=== PATIENT | female | born 1970 | race Caucasian/White ===

== ENCOUNTER 2018-04-14 15:51 | Emergency (ER) | payer OTHER, MEDICAID, SELFPAY ==
--- NOTE | 2018-04-14 15:52 | ED.UPPEXIN ---
HPI - Extremity Injury (Upper) <WANG Cade - Last Filed: 04/14/18 22:26> General Chief Complaint: Animal Bite Stated Complaint: Dog bite right hand Time Seen by Provider: 04/14/18 15:52 Source: patient Mode of arrival: ambulatory Limitations: no limitations History of Present Illness HPI narrative: 47-year-old healthy female that is a nonsmoker for complaint of a dog bite to her right hand. She states that her dog and another dog got into a fight earlier today and she tried to break it up and got bit by her dog accidentally. She states immunizations on the doctor up-to-date. She does not know when her last tetanus is. Injuries are limited to the right hand. Incident happened earlier this afternoon. She denies any other concerns or complaints at this time. MD complaint: injury to: right and hand Related Data Previous Rx's Medication Instructions Recorded sulfamethoxazole-trimethoprim 1 tab PO BID #14 tab 02/10/16 amoxicillin-pot clavulanate 1 tab PO BID #14 tab 04/14/18 Allergies Allergy/AdvReac Type Severity Reaction Status Date / Time No Known Drug Allergies Allergy Verified 04/14/18 16:01 Review of Systems <WANG Cade - Last Filed: 04/14/18 22:26> Constitutional Denies chills, Denies fever(s), Denies lethargy and Denies weakness Eyes Denies change in vision, Denies eye discharge, Denies irritation and Denies loss of vision ENT Ears, Nose, Mouth, and Throat: Denies change in voice, Denies neck pain and Denies sore throat Cardiovascular Denies chest pain, Denies irregular heart rhythm, Denies lightheadedness, Denies palpitations, Denies dyspnea, Denies dyspnea on exertion and Denies orthopnea Respiratory Denies cough, Denies dyspnea, Denies dyspnea on exertion and Denies wheezing Gastrointestinal Gastrointestinal: Denies abdominal pain, Denies change in bowel habits, Denies diarrhea, Denies nausea and Denies vomiting Genitourinary Denies hematuria, Denies flank pain, Denies urinary incontinence and Denies urinary urgency Musculoskeletal Denies neck pain Comments: Dog bite right hand Integumentary/Breasts Denies pruritus, Denies erythema, Denies rash and Denies wounds Neurologic Denies confusion, Denies loss of vision and Denies weakness Psychiatric Denies anxiety, Denies confusion, Denies depression, Denies homicidal ideation and Denies suicidal ideation Endocrine Denies palpitations Hematologic/Lymphatic Denies easy bruising Allergic/Immunologic Denies wheezing Exam <WANG Cade - Last Filed: 04/14/18 22:26> Initial Vital Signs Initial Vital Signs: Vital Signs Temperature 98.9 F 04/14/18 15:53 Pulse Rate 119 H 04/14/18 15:53 Respiratory Rate 20 04/14/18 15:53 Blood Pressure 104/70 04/14/18 15:53 Pulse Oximetry 96 04/14/18 15:53 Const General: cooperative and well developed Nutritional Appearance: well nourished Orientation: alert, awake, oriented x3 and not confused HENNM Mouth: oral mucosae normal and moist mucous membranes Eyes Conjunctivae: conjunctivae normal Sclera: sclerae normal Pupils: PERRL EOM: EOM intact bilaterally Resp Effort & Inspection: normal respiratory effort, able to speak in complete sentences, no respiratory distress and no use of accessory muscles Auscultation: clear to auscultation bilaterally, no rales, no rhonchi and no wheezes Cardio Rate: regular rate Rhythm: regular rhythm Heart Sounds: no click, no gallops, no murmurs and no rubs Pulses: normal peripheral pulses Skin General: no rashes or lesions noted, No jaundice and No petechiae Neuro General: alert, oriented x3, gait normal and no focal motor deficits Speech: speech normal Extrem Other: Multiple abrasions to the radial aspect of the right hand on the dorsum. Two puncture wounds is approximately half a cm each to the palm of the right hand on the radial aspect. Distal sensation is intact. Full range of motion. Distal cap refill less than 2 sec. <Tricia Agosto DO - Last Filed: 04/15/18 07:32> Initial Vital Signs Initial Vital Signs: Vital Signs Temperature 98.9 F 04/14/18 15:53 Pulse Rate 119 H 04/14/18 15:53 Respiratory Rate 20 04/14/18 15:53 Blood Pressure 104/70 04/14/18 15:53 Pulse Oximetry 96 04/14/18 15:53 Course <WANG Cade - Last Filed: 04/14/18 22:26> Orders Ordered: Discontinued Medications Amoxicillin/Clavulanate Potassium (Augmentin 875-125 Mg) 1 tab PO NOW ONE Stop: 04/14/18 17:18 Last Admin: 04/14/18 17:22 Dose: 1 tab Diphtheria/Tetanus/Acell Pertussis (Adacel) 0.5 ml IM .ONCE ONE Stop: 04/14/18 16:31 Last Admin: 04/14/18 16:39 Dose: 0.5 ml Ibuprofen (Advil) 400 mg PO NOW ONE Stop: 04/14/18 16:31 Last Admin: 04/14/18 16:39 Dose: 400 mg Vital Signs - 8 hr 04/14/18 15:53 04/14/18 17:11 04/14/18 17:26 Temperature 98.9 F Pulse Rate 119 H 98 H Respiratory Rate 20 20 Blood Pressure 104/70 93/71 Blood Pressure [Left Arm] 93/71 Pulse Oximetry 96 98 <Tricia Agosto DO - Last Filed: 04/15/18 07:32> Orders Ordered: Discontinued Medications Amoxicillin/Clavulanate Potassium (Augmentin 875-125 Mg) 1 tab PO NOW ONE Stop: 04/14/18 17:18 Last Admin: 04/14/18 17:22 Dose: 1 tab Diphtheria/Tetanus/Acell Pertussis (Adacel) 0.5 ml IM .ONCE ONE Stop: 04/14/18 16:31 Last Admin: 04/14/18 16:39 Dose: 0.5 ml Ibuprofen (Advil) 400 mg PO NOW ONE Stop: 04/14/18 16:31 Last Admin: 04/14/18 16:39 Dose: 400 mg Vital Signs - 8 hr 04/14/18 15:53 04/14/18 17:11 04/14/18 17:26 Temperature 98.9 F Pulse Rate 119 H 98 H Respiratory Rate 20 20 Blood Pressure 104/70 93/71 Blood Pressure [Left Arm] 93/71 Pulse Oximetry 96 98 MDM - Extremity Injury (Upper) <WANG Cade - Last Filed: 04/14/18 22:26> Imaging Data X-ray the right hand : Radiologist's impression: [address] [address] XRay Report Signed Patient: Danielle Roberts [facility]#: [id number] : 1970Acct:[id number] Age/Sex: 47 / FDate of Service: 04/14/18 Loc: ED Accession Number: [id number] Procedure: XR hand RT min 3V Ordering Provider: Jeff Wesley PROCEDURE: XR HAND RT MIN 3V INDICATIONS: 60# dog bite , right hand TECHNIQUE: 3 views of the hand(s) acquired. COMPARISON: None. FINDINGS: Bones: No fractures or dislocations. Carpal bones are normally aligned. No suspicious bony lesions. Soft tissues: No suspicious soft tissue calcifications. IMPRESSION: No acute right hand fracture or dislocation. No radiopaque foreign body is seen. Dictated by: Christopher Edgar M.D. on 04/14/2018 at 16:08 Approved by: Christopher Edgar M.D. on 04/14/2018 at 16:09 [facility] Narrative Medical decision making narrative: X-ray the right hand was obtained was negative for any foreign bodies or bony involvement. Puncture wounds to the palm of the right hand was debrided and dressed with Steri-Strips. Tetanus was updated in the emergency room. She is placed on Augmentin for prophylaxis antibiotics. Follow up with primary care provider in the next few days for re-evaluation. [id number] ibuprofen as needed for any discomfort. For any worsening symptoms or signs of infection return to the emergency room. Discharge Plan Departure Patient Disposition: Home Clinical Impression: Dog bite of right hand Discharge Date/Time: 04/14/18 17:27 Interventions: ED Discharge Assessment Last Done: 04/14/18 17:26 Instructions: DI for Dog Bite Activity Restrictions/Additional Instructions: X-ray the right hand was obtained was negative for any foreign bodies or bony involvement. Puncture wounds to the palm of the right hand was debrided and dressed with Steri-Strips. Keep dressing on clean and dry for 36 hr. Try to keep area of Steri-Strips and dry 2 long to stay on as long as possible. Tetanus was updated in the emergency room. You have been is placed on Augmentin for prophylaxis antibiotics use as directed. Follow up with primary care provider in the next few days for re-evaluation. [id number] ibuprofen as needed for any discomfort. For any worsening symptoms or signs of infection return to the emergency room. Prescriptions: New amoxicillin-pot clavulanate 875-125 mg tablet 1 tab PO BID Qty: 14 RF: 0 No Action sulfamethoxazole-trimethoprim 800 MG/160 MG tablet 1 tab PO BID Qty: 14 RF: 0 Referrals: [facility] [Provider Group] <Tricia Agosto DO - Last Filed: 04/15/18 07:32> Cosign ED Attending Grayson Attestation: I was immediately available in the department for consultation. Documentation has been reviewed. I agree with assessment and plan.
[2018-04-14 15:53] VITALS: BP 104/70; PULSE 119; RESP 20; TEMP 37.2; O2SAT 96; BMI 33.9
--- NOTE | 2018-04-14 16:00 | DI.RAD.S_ITS ---
PROCEDURE: XR HAND RT MIN 3V INDICATIONS: 60# dog bite , right hand TECHNIQUE: 3 views of the hand(s) acquired. COMPARISON: None. FINDINGS: Bones: No fractures or dislocations. Carpal bones are normally aligned. No suspicious bony lesions. Soft tissues: No suspicious soft tissue calcifications. IMPRESSION: No acute right hand fracture or dislocation. No radiopaque foreign body is seen. Dictated by: Christopher Edgar M.D. on 04/14/2018 at 16:08 Approved by: Christopher Edgar M.D. on 04/14/2018 at 16:09
[2018-04-14] MEDS: TET,DIPH,PERTUSS(ACELL),VAC/PF 0.5 ML SYRINGE IM (16:39)
[2018-04-14] MEDS: IBUPROFEN 400 MG TABLET PO (16:39)
[2018-04-14 17:11] VITALS: BP 93/71
[2018-04-14] MEDS: AMOXICILLIN/CLAV 875/125 MG 1 TAB PO (17:22)
--- NOTE | 2018-04-14 17:25 | PC.NURSE ---
dressed pts wound with bacitracin and gauze. Pt tolerated procedure.
[2018-04-14 17:26] VITALS: BP 93/71; PULSE 98; RESP 20; O2SAT 98
--- NOTE | 2018-04-14 20:27 | PC.NURSE ---
pt left prescription on bed in room 6, after discharge paperwork given. Tried calling home phone on pts chart, and contacts. no answer. prescription put in envelope held at [facility] [place] [place] desk in case pt called for prescription.
--- NOTE | 2018-04-15 18:08 | PC.NURSE ---
Rx called in to [facility] at pt request
== END 2018-04-14 17:27 | disposition home or self-care (01) ==
PROVIDERS: Emergency Provider Nurse Practitioner Family
DX: S61.451A Open bite of right hand, initial encounter (principal); W54.0XXA Bitten by dog, initial encounter
CPT/HCPCS: 73130; 90471; 99282; 99283; 90715

== ENCOUNTER 2018-05-25 20:19 | Emergency (ER) | payer OTHER, MEDICAID, SELFPAY ==
[2018-05-25 20:26] VITALS: BP 93/64; PULSE 104; RESP 20; TEMP 37.2; O2SAT 99
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
[2018-05-25 21:30] VITALS: BP 110/63; PULSE 103; RESP 15; O2SAT 96
--- NOTE | 2018-05-25 21:50 | ED.SYNCOPE ---
HPI - Syncope General Chief Complaint: Syncope Stated Complaint: not acting her self, passing out all the time Time Seen by Provider: 05/25/18 21:49 Source: patient Mode of arrival: ambulatory Limitations: no limitations History of Present Illness HPI narrative: The patient has been ill since yesterday. She has had diarrhea since yesterday. She has epigastric pain with nausea, but no illness. She has ongoing epigastric pain now, but no radiation to the back. She has had no blood with the diarrhea. She has no history of GI bleed. She currently feels weak, and fatigued. She has not had associated fever or chills. She does have mid back pain on the left, but no associated dysuria. She does have a history of UTI. She has not been around others with illness. She has no chronic illness, she is not on medications. Related Data Previous Rx's Medication Instructions Recorded amoxicillin-pot clavulanate 1 tab PO BID #14 tab 04/14/18 Allergies Allergy/AdvReac Type Severity Reaction Status Date / Time No Known Drug Allergies Allergy Verified 05/25/18 20:34 Review of Systems Review of Systems ROS Unobtainable: All systems reviewed & are unremarkable except as noted in HPI and below Constitutional Reports chills, Denies fever(s), Denies headache(s), Reports lethargy, Reports poor appetite and Reports weakness Eyes Denies change in vision, Denies eye discharge, Denies irritation and Denies loss of vision ENT Ears, Nose, Mouth, and Throat: Denies change in voice, Denies headache(s), Denies neck pain and Denies sore throat Cardiovascular Denies chest pain, Denies irregular heart rhythm, Denies lightheadedness, Denies palpitations, Denies dyspnea, Denies dyspnea on exertion and Denies orthopnea Respiratory Denies cough, Denies dyspnea, Denies dyspnea on exertion and Denies wheezing Gastrointestinal Gastrointestinal: Reports abdominal pain (Epigastric), Denies change in bowel habits, Reports diarrhea, Reports nausea and Denies vomiting Genitourinary Denies dysuria Musculoskeletal Reports back pain and Denies neck pain Integumentary/Breasts Denies pruritus, Denies erythema, Denies rash and Denies wounds Neurologic Denies headache(s), Denies loss of vision and Reports weakness Endocrine Denies palpitations Allergic/Immunologic Denies wheezing [facility] Medical History No active medical problems (Acute) Surgical History No history of previous surgery (Acute) Social History Smoking Status: Never smoker alcohol intake: never substance use type: does not use Exam Initial Vital Signs Initial Vital Signs: Vital Signs Temperature 99.0 F 05/25/18 20:26 Pulse Rate 104 H 05/25/18 20:26 Respiratory Rate 20 05/25/18 20:26 Blood Pressure 93/64 05/25/18 20:26 Pulse Oximetry 99 05/25/18 20:26 Const General: cooperative, well developed, ill appearing, lethargic and No well hydrated Nutritional Appearance: well nourished Orientation: alert, awake, oriented x3 and not confused HENPR Head: normocephalic and atraumatic Nose: external nose normal Face and sinus: sinuses nontender and face symmetric Mouth: other (Oral mucosa appears dry) Throat: tonsils normal and uvula midline Eyes Visual Covarrubias: normal visual covarrubias by confrontation Conjunctivae: conjunctivae normal Pupils: PERRL EOM: EOM intact bilaterally Neck Neck: supple and No tender Chest Chest: normal inspection of the chest Resp Effort & Inspection: normal respiratory effort, able to speak in complete sentences, no respiratory distress and no use of accessory muscles Auscultation: clear to auscultation bilaterally, no rales, no rhonchi and no wheezes Cardio Rate: regular rate Rhythm: regular rhythm Heart Sounds: no click, no gallops, no murmurs and no rubs Pulses: normal peripheral pulses GI Inspection: non-distended Palpation: soft, no hepatosplenomegaly, No guarding and No tender (In the epigastric area without guarding or rebound.) Auscultation: normal bowel sounds Back/Spine/Pelvis Back: No CVA tenderness Skin General: no rashes or lesions noted and No jaundice Neuro General: alert, oriented x3, gait normal and no focal motor deficits Speech: speech normal Motor: muscle tone normal throughout Extrem General: full ROM, no clubbing, cyanosis or edema, no pedal edema and no calf tenderness Psych Appearance: well kempt Mental Status: mental status grossly normal Attitude: cooperative Thought Content: normal and suicidality Judgment: judgment good Other: Seems drowsy Course Course Narrative: The patient was evaluated. History was taken. Patient seemed withdrawn, but was compliant with the exam, history and physical. IV fluids and labs were ordered. After I left the room, patient declared that she is leaving [facility] to the nurses. No additional evaluation occurred. Orders Ordered: ED Orders 05/25/18 22:07 Complete Blood Count AUTO DIFF Stat Comprehensive Metabolic Panel Stat Lipase Stat EKG-12 Lead Stat Discontinued Medications Sodium Chloride (Normal Saline 0.9%) 500 mls @ 1,000 mls/hr IV BOLUS ONE Stop: 05/25/18 22:36 Ketorolac Tromethamine (Toradol) 30 mg IV NOW ONE Stop: 05/25/18 22:08 Ondansetron HCl (Zofran) 4 mg IV NOW ONE Stop: 05/25/18 22:08 Vital Signs - 8 hr 05/25/18 20:26 05/25/18 21:30 05/25/18 22:00 Temperature 99.0 F Pulse Rate 104 H 103 H 91 H Respiratory Rate 20 15 16 Blood Pressure 93/64 Blood Pressure [Right Arm] 110/63 114/69 Pulse Oximetry 99 96 98 05/25/18 22:22 Temperature 99.8 F H Pulse Rate Respiratory Rate Blood Pressure Blood Pressure [Right Arm] Pulse Oximetry Discharge Plan Departure Patient Disposition: Left Against Medical Advice Clinical Impression: Left against medical advice Discharge Date/Time: 05/25/18 22:43 Interventions: ED Discharge Assessment Last Done: 05/25/18 22:45 Prescriptions: No Action amoxicillin-pot clavulanate 875-125 mg tablet 1 tab PO BID Qty: 14 RF: 0 Stand Alone Forms: Against Medical Advice
[2018-05-25 22:00] VITALS: BP 114/69; PULSE 91; RESP 16; O2SAT 98
--- NOTE | 2018-05-25 22:06 | PC.NURSE ---
friend reports he tried to get into pt house last night but the door was locked and nobody answered. He slept in his truck and tried again in the morning. She unlocked the door in the morning and let him in. He states she was laying on the floor the whole night. Pt appears to be selectivey answering questions and choosing not to answer others. At one point she yelled out Shaheen and said she wanted brian to leave and Vinnie to come. Pt is now allowing Brian to use her phone and is denying wanting brian to leave. Provider at [facility] assessing. Francheska recieved.
[2018-05-25 22:22] VITALS: TEMP 37.7
--- NOTE | 2018-05-25 22:44 | PC.NURSE ---
Pt requesting to sign out AMA. Dr. Gan aware. Pt signed AMA form. Pt left ambulatory, steady gait noted. Pt in no apparent distress at time of D/C, AOx4.
== END 2018-05-25 22:43 | disposition left against medical advice (07) ==
PROVIDERS: Emergency Provider Emergency Medicine
DX: R55 Syncope and collapse (principal); Z53.20 Procedure and treatment not carried out because of patient's decision for unspecified reasons
CPT/HCPCS: 93005; 93010; 99283

== ENCOUNTER 2018-07-03 12:15 | Emergency (ER) | payer OTHER, MEDICAID, SELFPAY ==
[2018-07-03 12:28] VITALS: BP 123/81; PULSE 98; RESP 18; TEMP 37.7; O2SAT 95
--- NOTE | 2018-07-03 12:35 | ED.URI ---
HPI - URI/Sore Throat <Evelyn Devine PA-C - Last Filed: 07/03/18 19:42> General Chief Complaint: Upper Respiratory Symptoms Stated Complaint: Fever, cough, headache Time Seen by Provider: 07/03/18 12:23 Source: patient Mode of arrival: ambulatory Limitations: no limitations History of Present Illness HPI Narrative: This 47-year-old female comes to ED secondary to body aches that started 3 days ago, then cough, runny nose and fever ( she states that she did not take any temperatures at home but her head felt warm ). She denies any chest pain, wheeze, or dyspnea. She denies any known exposures or travel recently. She denies any new rashes, no vomiting diarrhea or other complaints on systems review aside from fatigue. She is not sure whether she had a flu vaccine this season Related Data Home Medications Medication Instructions Recorded Confirmed No Known Home Medications 07/03/18 07/03/18 Allergies Allergy/AdvReac Type Severity Reaction Status Date / Time No Known Drug Allergies Allergy Verified 07/03/18 12:31 Review of Systems <Evelyn Devine PA-C - Last Filed: 07/03/18 19:42> Review of Systems ROS Unobtainable: All systems reviewed & are unremarkable except as noted in HPI and below PFSH <Evelyn Devine PA-C - Last Filed: 07/03/18 19:42> Medical History Osteoarthritis of lumbar spine (Chronic) Surgical History No history of previous surgery (Chronic) Social History Smoking Status: Never smoker alcohol intake: never substance use type: does not use Social History Smoking Status: Never smoker alcohol intake: never substance use type: does not use Exam <Evelyn Devine PA-C - Last Filed: 07/03/18 19:42> Narrative Exam Narrative: GENERAL APPEARANCE: Patient sleeping comfortably, in no distress. HEAD: No sinus TTP. EYES: PERRL, EOMI. EARS: Normal auditory canals, TMS intact with normal light reflexes. ORAL CAVITY: Normal oropharynx. THROAT: Clear. NECK/THYROID: Neck supple, full range of motion shotty anterior cervical lymphadenopathy. LUNGS: Clear to auscultation bilaterally, no cough on exam. HEART: RRR without murmur, nl S1, S2, no S3 or S4. DERMATOLOGIC: No exanthem Initial Vital Signs Initial Vital Signs: Vital Signs Temperature 99.8 F H 07/03/18 12:28 Pulse Rate 98 H 07/03/18 12:28 Respiratory Rate 18 07/03/18 12:28 Blood Pressure 123/81 07/03/18 12:28 Pulse Oximetry 95 07/03/18 12:28 <Will Freire DO - Last Filed: 07/03/18 19:47> Initial Vital Signs Initial Vital Signs: Vital Signs Temperature 99.8 F H 07/03/18 12:28 Pulse Rate 98 H 07/03/18 12:28 Respiratory Rate 18 07/03/18 12:28 Blood Pressure 123/81 07/03/18 12:28 Pulse Oximetry 95 07/03/18 12:28 Course <Evelyn Devine PA-C - Last Filed: 07/03/18 19:42> Orders Ordered: ED Orders 07/03/18 12:37 Influenza A and B by PCR Rapid Stat Discontinued Medications Ibuprofen (Advil) 800 mg PO NOW ONE Stop: 07/03/18 12:32 Last Admin: 07/03/18 12:39 Dose: 800 mg Vital Signs - 8 hr 07/03/18 12:28 07/03/18 12:39 07/03/18 13:57 Temperature 99.8 F H 99.8 F H 98.0 F Pulse Rate 98 H 84 Respiratory Rate 18 17 Blood Pressure 123/81 Blood Pressure [Left Arm] 116/61 Pulse Oximetry 95 96 <Will Freire DO - Last Filed: 07/03/18 19:47> Orders Ordered: ED Orders 07/03/18 12:37 Influenza A and B by PCR Rapid Stat Discontinued Medications Ibuprofen (Advil) 800 mg PO NOW ONE Stop: 07/03/18 12:32 Last Admin: 07/03/18 12:39 Dose: 800 mg Vital Signs - 8 hr 07/03/18 12:28 07/03/18 12:39 07/03/18 13:57 Temperature 99.8 F H 99.8 F H 98.0 F Pulse Rate 98 H 84 Respiratory Rate 18 17 Blood Pressure 123/81 Blood Pressure [Left Arm] 116/61 Pulse Oximetry 95 96 MDM - URI/Sore Throat <Evelyn Devine PA-C - Last Filed: 07/03/18 19:42> Lab Data Lab Results 07/03/18 Range/Units 12:37 Influenza A & B (PCR) Negative (Negative) <Will Freire DO - Last Filed: 07/03/18 19:47> Lab Data Lab Results 07/03/18 Range/Units 12:37 Influenza A & B (PCR) Negative (Negative) Discharge Plan Departure Patient Disposition: Home Clinical Impression: Upper respiratory infection Qualifiers: URI type: unspecified viral URI Qualified Code(s): J06.9 - Acute upper respiratory infection, unspecified Discharge Date/Time: 07/03/18 14:00 Interventions: ED Discharge Assessment Last Done: 07/03/18 14:00 Instructions: DI for Viral Upper Respiratory Infection -- Adult Activity Restrictions/Additional Instructions: based on your exam findings and negative test for the flu today, I suspect that you have another viral infection that is similar to the flu. Please rest at home. Avoid exposure to others while you still have cough. Take 600-800 mg of ibuprofen every 8 hr to help with aches and fever, and you can add Tylenol every 4-6 hours in addition as needed. Please return to the closest emergency room if you have acutely worsening symptoms such as breathing difficulty, high fever not responding to medicines etc. Otherwise this is likely to run its course over the next week or so. Prescriptions: No Action No Known Home Medications RF: 0 <Will Freire DO - Last Filed: 07/03/18 19:47> Cosign ED Attending Jaironature Attestation: I was available for consultation during this patient's emergency department encounter
[2018-07-03 12:39] VITALS: TEMP 37.7
[2018-07-03] MEDS: IBUPROFEN 400 MG TABLET 800 MG PO (12:39)
[2018-07-03 13:37] LABS: Influenza A and B by PCR Rapid Negative (Negative)
[2018-07-03 13:57] VITALS: BP 116/61; PULSE 84; RESP 17; TEMP 36.7; O2SAT 96
== END 2018-07-03 14:00 | disposition home or self-care (01) ==
PROVIDERS: Emergency Provider Internal Medicine
DX: J06.9 Acute upper respiratory infection, unspecified (principal)
CPT/HCPCS: 87400; 99282; 99283

== ENCOUNTER 2018-09-20 10:37 | Emergency (ER) | payer OTHER, MEDICAID, SELFPAY ==
[2018-09-20 10:40] VITALS: BP 142/78; PULSE 84; RESP 14; TEMP 36.6; O2SAT 99
--- NOTE | 2018-09-20 11:38 | ED.GIBLEED ---
HPI - GI Bleed General Chief complaint: GI Bleed Stated complaint: Pooping pure blood Time Seen by Provider: 09/20/18 11:37 Source: patient Mode of arrival: ambulatory Limitations: no limitations History of Present Illness HPI Narrative: 47-year-old female comes to the emergency department with complaint of rectal bleeding. Patient states that it started last night. She went to the movies, she went to the bathroom she was straining and then she started to have diarrhea. She did vomit twice last night but none today. She has not had any fevers, no nausea currently. She does not have any abdominal pain currently. She states she did have a little bit sort of rectally and lower abdomen. Patient states that there was blood on the toilet paper as well as around the stool she did notice if it is mixed within or not. There was a little bit in the toilet itself. She did not note if there were any clots. She has not had any passing out or lightheadedness. No urinary sense of no urgency dysuria or frequency. She is not aware of any hemorrhoids. She denies any other medical issues. Denies any prior surgeries. She denies any tobacco, alcohol or illicit. Related Data Previous Rx's Medication Instructions Recorded ciprofloxacin HCl 500 mg PO BID #20 tab 09/20/18 metronidazole [Flagyl] 500 mg PO TID #30 tab 09/20/18 Allergies Allergy/AdvReac Type Severity Reaction Status Date / Time No Known Drug Allergies Allergy Verified 07/03/18 12:31 Review of Systems Review of Systems ROS Unobtainable: All systems reviewed & are unremarkable except as noted in HPI and below Constitutional Denies chills, Denies fever(s), Denies lethargy and Denies weakness Cardiovascular Denies chest pain, Denies lightheadedness, Denies palpitations and Denies dyspnea Respiratory Denies dyspnea Gastrointestinal Gastrointestinal: Reports abdominal pain, Denies melena, Reports hematochezia, Reports change in bowel habits, Reports tenesmus, Denies constipation, Reports diarrhea, Denies nausea and Reports vomiting (2x last night. ) Genitourinary Denies hematuria, Denies urinary frequency, Denies dysuria, Denies flank pain, Denies urinary urgency and Denies vaginal discharge Neurologic Denies weakness Endocrine Denies palpitations [facility] Medical History Osteoarthritis of lumbar spine (Chronic) Surgical History No history of previous surgery (Chronic) Social History Smoking Status: Never smoker alcohol intake: never substance use type: does not use Social History Smoking Status: Never smoker alcohol intake: never substance use type: does not use Exam Narrative Exam Narrative: GENERAL: Alert and oriented x three, well-nourished female that appears older than her stated age in no acute distress. HEENT: Head normocephalic, atraumatic, EOMI, pupils reactive, face symmetric, moist mucous membranes NECK: Supple, full range of motion CARDIOVASCULAR: Regular rate and rhythm without murmurs, rubs or gallops. RESPIRATORY: Breath sounds equal bilaterally, no wheezes rales or rhonchi. ABDOMEN: Soft, nontender. Normoactive bowel sounds all 4 quadrants. No guarding or rebound, rigidity, no mass. On rectal exam no palpable hemorrhoids noted externally or internally, nontender. Patient does not have any bright red blood but does have a little bit of color change on Hemoccult. Very scant. : No CVA tenderness EXTREMITIES: Normal range of motion, no clubbing or edema. Neurovascularly intact NEUROLOGICAL: Cranial nerves II through XII grossly intact. Moving all extremities SKIN: Warm, dry, no petechiae, no rashes or lesions. Initial Vital Signs Initial Vital Signs: Vital Signs Temperature 97.8 F 09/20/18 10:40 Pulse Rate 84 09/20/18 10:40 Respiratory Rate 14 09/20/18 10:40 Blood Pressure 142/78 H 09/20/18 10:40 Pulse Oximetry 99 09/20/18 10:40 Course Orders Ordered: ED Orders 09/20/18 12:22 Basic Metabolic Panel Stat Complete Blood Count AUTO DIFF Stat Partial Thromboplastin Time Stat Prothrombin Time INR Stat 09/20/18 14:13 Urine Culture Stat Urine Microscopic Stat Vital Signs - 8 hr 09/20/18 13:09 09/20/18 13:30 Pulse Rate 69 Respiratory Rate 15 Blood Pressure [Left Arm] 119/68 104/51 L Pulse Oximetry 100 MDM - GI Bleed Lab Data Result diagrams: 09/20/18 12:22 09/20/18 12:22 Lab Results 09/20/18 09/20/18 09/20/18 Range/Units 12:22 12:22 12:22 WBC 13.4 H (4.5-11.0) X10^3/uL RBC 4.98 (4.0-5.2) X10^6/uL Hgb 10.7 L (12.0-16.0) g/dL Hct 35.1 L (36-46) % MCV 70.4 L (80-100) fL MCH 21.5 L (26-34) PG MCHC 30.5 (30-36) % RDW 17.6 H (11.6-14.8) % Plt Count 353 (150-400) X10^3/uL Neut % (Auto) 71.3 (50-75) % Lymph % (Auto) 15.5 L (25-40) % [place] % (Auto) 11.3 (3-14) % Eos % (Auto) 1.1 L (2-4) % Baso % (Auto) 0.8 (0-2) % Neut # (Auto) 9500 H (4624-9971) /uL Lymph # (Auto) 2100 (1230-5789) /uL [place] # (Auto) 1500 H (0-900) /uL Eos # (Auto) 100 (0-450) /uL Baso # (Auto) 100 (0-100) /uL PT 11.0 (10.1-12.7) SECONDS INR 1.0 (0.9-1.3) APTT 29 (26.4-36.2) SECONDS Sodium 138 (137-145) mmol/L Potassium 3.5 (3.4-5.1) mmol/L Chloride 103 (98-107) mmol/L Carbon Dioxide 27 (22-32) mmol/L BUN 11 (7-17) mg/dL Creatinine 0.60 (0.52-1.04) mg/dL Estimated GFR > 60.0 (>60) mL/min BUN/Creatinine Ratio 18.3 (6-22) Glucose 99 (70-100) mg/dL Calcium 9.0 (8.4-10.2) mg/dL Urine RBC (0-5/HPF) Urine WBC (0-5/HPF) Ur Squamous Epith Cells (0-5/HPF) Amorphous Sediment Urine Bacteria (None) Urine Mucus (Negative) Ur Culture Indicated? 09/20/18 Range/Units 14:13 WBC (4.5-11.0) X10^3/uL RBC (4.0-5.2) X10^6/uL Hgb (12.0-16.0) g/dL Hct (36-46) % MCV (80-100) fL MCH (26-34) PG MCHC (30-36) % RDW (11.6-14.8) % Plt Count (150-400) X10^3/uL Neut % (Auto) (50-75) % Lymph % (Auto) (25-40) % [place] % (Auto) (3-14) % Eos % (Auto) (2-4) % Baso % (Auto) (0-2) % Neut # (Auto) (3695-5016) /uL Lymph # (Auto) (0502-4909) /uL [place] # (Auto) (0-900) /uL Eos # (Auto) (0-450) /uL Baso # (Auto) (0-100) /uL PT (10.1-12.7) SECONDS INR (0.9-1.3) APTT (26.4-36.2) SECONDS Sodium (137-145) mmol/L Potassium (3.4-5.1) mmol/L Chloride (98-107) mmol/L Carbon Dioxide (22-32) mmol/L BUN (7-17) mg/dL Creatinine (0.52-1.04) mg/dL Estimated GFR (>60) mL/min BUN/Creatinine Ratio (6-22) Glucose (70-100) mg/dL Calcium (8.4-10.2) mg/dL Urine RBC 0-1/hpf (0-5/HPF) Urine WBC 5-10/hpf H (0-5/HPF) Ur Squamous Epith Cells 1-5 /hpf (0-5/HPF) Amorphous Sediment 1+ Urine Bacteria Many (>30) H (None) Urine Mucus 1+ H (Negative) Ur Culture Indicated? Specimen cultured Urine Dip Bedside Urine Glucose Negative Bedside Urine Bilirubin - Negative Bedside Urine Ketone - Negative Urine Specific [place] 1.030 Bedside Urine Occult Blood +/- Bedside Urine pH 6.0 Bedside Urine Protein +/- 15 Bedside Urine Urobilinogen - Negative Bedside Urine Nitrite + Positive Bedside Urine Leukocytes - Negative Esterase MDM Narrative Medical decision making narrative: Patient required multiple lab draw attempts, patient eventually was able to blood from his foot. Patient's vitals have been stable, hemoglobin is 10.7 with prior in the range of 12. White count is 13. She has a microcytic anemia, last hemoglobin was from 2016. the patient's coags are normal with a normal BMP. On repeat exam patient's abdominal exam is normal and benign. Discussed with patient she is a very hard stick we could attempt to get an IV and get a contrasted CT but I also suspect she may have a little diverticulitis or colitis causing her bleeding and discomfort. Patient and I discussed doing oral antibiotics and re-evaluating. She does need to have colonoscopy at some point to see why she has change in her hemoglobin and positive occult stool. We also discussed signs and symptoms to watch for and reasons to return emergently. Her vital signs are normal today and she has not had any more bowel movements or bloody stools in the department. Patient is comfortable with this plan she is aware that we do not have an exact cause of her bleeding but that we will treat this and see how she responds. Discharge Plan Departure Patient Disposition: Home Clinical Impression: Bright red rectal bleeding, Diverticulitis, UTI (urinary tract infection) Discharge Date/Time: 09/20/18 14:16 Interventions: ED Discharge Assessment Last Done: 09/20/18 14:16 Instructions: DI for Diverticulitis, DI for Rectal Bleeding Activity Restrictions/Additional Instructions: Follow-up with General surgery in the next 1-2 weeks for recheck for colonoscopy. You may also call [phone] for the health human resources benefits manager and they will help you find a primary care physician to establish with. Take antibiotics until they are completely gone. The Flagyl will make you throw up if you drink alcohol while taking this medication. You may take ibuprofen and/or Tylenol as needed for pain. Return to the emergency department for fevers greater than 100.4 F, worsening abdominal pain, increasing rectal bleeding, large clots, lightheadedness, passing out, chest pain or shortness of breath, black stools or other new or concerning symptoms. Prescriptions: New metronidazole [Flagyl] 500 mg tablet 500 mg PO TID Qty: 30 RF: 0 ciprofloxacin HCl 500 mg tablet 500 mg PO BID Qty: 20 RF: 0
--- NOTE | 2018-09-20 12:14 | ED_ITS ---
HPI - GI Bleed General Chief complaint: GI Bleed Stated complaint: Pooping pure blood Time Seen by Provider: 09/20/18 11:37 Source: patient Mode of arrival: ambulatory Limitations: no limitations History of Present Illness HPI Narrative: 47-year-old female comes to the emergency department with complaint of rectal bleeding. Patient states that it started last night. She went to the movies, she went to the bathroom she was straining and then she started to have diarrhea. She did vomit twice last night but none today. She has not had any fevers, no nausea currently. She does not have any abdominal pain currently. She states she did have a little bit sort of rectally and lower abdomen. Patient states that there was blood on the toilet paper as well as around the stool she did notice if it is mixed within or not. There was a little bit in the toilet itself. She did not note if there were any clots. She has not had any passing out or lightheadedness. No urinary sense of no urgency dysuria or frequency. She is not aware of any hemorrhoids. She denies any other medical issues. Denies any prior surgeries. She denies any tobacco, alcohol or illicit. Related Data Previous Rx's Medication Instructions Recorded ciprofloxacin HCl 500 mg PO BID #20 tab 09/20/18 metronidazole [Flagyl] 500 mg PO TID #30 tab 09/20/18 Allergies Allergy/AdvReac Type Severity Reaction Status Date / Time No Known Drug Allergies Allergy Verified 07/03/18 12:31 Review of Systems Review of Systems ROS Unobtainable: All systems reviewed & are unremarkable except as noted in HPI and below Constitutional Denies chills, Denies fever(s), Denies lethargy and Denies weakness Cardiovascular Denies chest pain, Denies lightheadedness, Denies palpitations and Denies dyspnea Respiratory Denies dyspnea Gastrointestinal Gastrointestinal: Reports abdominal pain, Denies melena, Reports hematochezia, Reports change in bowel habits, Reports tenesmus, Denies constipation, Reports diarrhea, Denies nausea and Reports vomiting (2x last night. ) Genitourinary Denies hematuria, Denies urinary frequency, Denies dysuria, Denies flank pain, Denies urinary urgency and Denies vaginal discharge Neurologic Denies weakness Endocrine Denies palpitations [facility] Medical History Osteoarthritis of lumbar spine (Chronic) Surgical History No history of previous surgery (Chronic) Social History Smoking Status: Never smoker alcohol intake: never substance use type: does not use Social History Smoking Status: Never smoker alcohol intake: never substance use type: does not use Exam Narrative Exam Narrative: GENERAL: Alert and oriented x three, well-nourished female that appears older than her stated age in no acute distress. HEENT: Head normocephalic, atraumatic, EOMI, pupils reactive, face symmetric, moist mucous membranes NECK: Supple, full range of motion CARDIOVASCULAR: Regular rate and rhythm without murmurs, rubs or gallops. RESPIRATORY: Breath sounds equal bilaterally, no wheezes rales or rhonchi. ABDOMEN: Soft, nontender. Normoactive bowel sounds all 4 quadrants. No guarding or rebound, rigidity, no mass. On rectal exam no palpable hemorrhoids noted externally or internally, nontender. Patient does not have any bright red blood but does have a little bit of color change on Hemoccult. Very scant. : No CVA tenderness EXTREMITIES: Normal range of motion, no clubbing or edema. Neurovascularly intact NEUROLOGICAL: Cranial nerves II through XII grossly intact. Moving all extremities SKIN: Warm, dry, no petechiae, no rashes or lesions. Initial Vital Signs Initial Vital Signs: Vital Signs Temperature 97.8 F 09/20/18 10:40 Pulse Rate 84 09/20/18 10:40 Respiratory Rate 14 09/20/18 10:40 Blood Pressure 142/78 H 09/20/18 10:40 Pulse Oximetry 99 09/20/18 10:40 Course Orders Ordered: ED Orders 09/20/18 12:22 Basic Metabolic Panel Stat Complete Blood Count AUTO DIFF Stat Partial Thromboplastin Time Stat Prothrombin Time INR Stat 09/20/18 14:13 Urine Culture Stat Urine Microscopic Stat Vital Signs - 8 hr 09/20/18 13:09 09/20/18 13:30 Pulse Rate 69 Respiratory Rate 15 Blood Pressure [Left Arm] 119/68 104/51 L Pulse Oximetry 100 MDM - GI Bleed Lab Data Result diagrams: 09/20/18 12:22 09/20/18 12:22 Lab Results 09/20/18 09/20/18 09/20/18 Range/Units 12:22 12:22 12:22 WBC 13.4 H (4.5-11.0) X10^3/uL RBC 4.98 (4.0-5.2) X10^6/uL Hgb 10.7 L (12.0-16.0) g/dL Hct 35.1 L (36-46) % MCV 70.4 L (80-100) fL MCH 21.5 L (26-34) PG MCHC 30.5 (30-36) % RDW 17.6 H (11.6-14.8) % Plt Count 353 (150-400) X10^3/uL Neut % (Auto) 71.3 (50-75) % Lymph % (Auto) 15.5 L (25-40) % [place] % (Auto) 11.3 (3-14) % Eos % (Auto) 1.1 L (2-4) % Baso % (Auto) 0.8 (0-2) % Neut # (Auto) 9500 H (6413-2198) /uL Lymph # (Auto) 2100 (0850-6554) /uL [place] # (Auto) 1500 H (0-900) /uL Eos # (Auto) 100 (0-450) /uL Baso # (Auto) 100 (0-100) /uL PT 11.0 (10.1-12.7) SECONDS INR 1.0 (0.9-1.3) APTT 29 (26.4-36.2) SECONDS Sodium 138 (137-145) mmol/L Potassium 3.5 (3.4-5.1) mmol/L Chloride 103 (98-107) mmol/L Carbon Dioxide 27 (22-32) mmol/L BUN 11 (7-17) mg/dL Creatinine 0.60 (0.52-1.04) mg/dL Estimated GFR > 60.0 (>60) mL/min BUN/Creatinine Ratio 18.3 (6-22) Glucose 99 (70-100) mg/dL Calcium 9.0 (8.4-10.2) mg/dL Urine RBC (0-5/HPF) Urine WBC (0-5/HPF) Ur Squamous Epith Cells (0-5/HPF) Amorphous Sediment Urine Bacteria (None) Urine Mucus (Negative) Ur Culture Indicated? 09/20/18 Range/Units 14:13 WBC (4.5-11.0) X10^3/uL RBC (4.0-5.2) X10^6/uL Hgb (12.0-16.0) g/dL Hct (36-46) % MCV (80-100) fL MCH (26-34) PG MCHC (30-36) % RDW (11.6-14.8) % Plt Count (150-400) X10^3/uL Neut % (Auto) (50-75) % Lymph % (Auto) (25-40) % [place] % (Auto) (3-14) % Eos % (Auto) (2-4) % Baso % (Auto) (0-2) % Neut # (Auto) (1609-4555) /uL Lymph # (Auto) (3748-3207) /uL [place] # (Auto) (0-900) /uL Eos # (Auto) (0-450) /uL Baso # (Auto) (0-100) /uL PT (10.1-12.7) SECONDS INR (0.9-1.3) APTT (26.4-36.2) SECONDS Sodium (137-145) mmol/L Potassium (3.4-5.1) mmol/L Chloride (98-107) mmol/L Carbon Dioxide (22-32) mmol/L BUN (7-17) mg/dL Creatinine (0.52-1.04) mg/dL Estimated GFR (>60) mL/min BUN/Creatinine Ratio (6-22) Glucose (70-100) mg/dL Calcium (8.4-10.2) mg/dL Urine RBC 0-1/hpf (0-5/HPF) Urine WBC 5-10/hpf H (0-5/HPF) Ur Squamous Epith Cells 1-5 /hpf (0-5/HPF) Amorphous Sediment 1+ Urine Bacteria Many (>30) H (None) Urine Mucus 1+ H (Negative) Ur Culture Indicated? Specimen cultured Urine Dip Bedside Urine Glucose Negative Bedside Urine Bilirubin - Negative Bedside Urine Ketone - Negative Urine Specific [place] 1.030 Bedside Urine Occult Blood +/- Bedside Urine pH 6.0 Bedside Urine Protein +/- 15 Bedside Urine Urobilinogen - Negative Bedside Urine Nitrite + Positive Bedside Urine Leukocytes - Negative Esterase MDM Narrative Medical decision making narrative: Patient required multiple lab draw attempts, patient eventually was able to blood from his foot. Patient's vitals have been stable, hemoglobin is 10.7 with prior in the range of 12. White count is 13. She has a microcytic anemia, last hemoglobin was from 2016. the patient's coags are normal with a normal BMP. On repeat exam patient's abdominal exam is normal and benign. Discussed with patient she is a very hard stick we could attempt to get an IV and get a contrasted CT but I also suspect she may have a little diverticulitis or colitis causing her bleeding and discomfort. Patient and I discussed doing oral antibiotics and re-evaluating. She does need to have co lonoscopy at some point to see why she has change in her hemoglobin and positive occult stool. We also discussed signs and symptoms to watch for and reasons to return emergently. Her vital signs are normal today and she has not had any more bowel movements or bloody stools in the department. Patient is comfortable with this plan she is aware that we do not have an exact cause of her bleeding but that we will treat this and see how she responds. Discharge Plan Departure Patient Disposition: Home Clinical Impression: Bright red rectal bleeding, Diverticulitis, UTI (urinary tract infection) Discharge Date/Time: 09/20/18 14:16 Interventions: ED Discharge Assessment Last Done: 09/20/18 14:16 Instructions: DI for Diverticulitis, DI for Rectal Bleeding Activity Restrictions/Additional Instructions: Follow-up with General surgery in the next 1-2 weeks for recheck for colo noscopy. You may also call [phone] for the health resource manager and they will help you find a primary care physician to establish with. Take antibiotics until they are completely gone. The Flagyl will make you throw up if you drink alcohol while taking this medication. You may take ibuprofen and/or Tylenol as needed for pain. Return to the emergency department for fevers greater than 100.4 F, worsening abdominal pain, increasing rectal bleeding, large clots, lightheadedness, pass ing out, chest pain or shortness of breath, black stools or other new or concerning symptoms. Prescriptions: New metronidazole [Flagyl] 500 mg tablet 500 mg PO TID Qty: 30 RF: 0 ciprofloxacin HCl 500 mg tablet 500 mg PO BID Qty: 20 RF: 0
[2018-09-20 12:31] LABS: Add Manual Diff / Slide Review NO; Basophils Absolute Auto 100 /uL (0-100); Basophils Percent Auto 0.8 % (0-2); Eosinophils Absolute Auto 100 /uL (0-450); Eosinophils Percent Auto 1.1 % (2-4); Hematocrit 35.1 % (36-46); Hemoglobin 10.7 g/dL (12.0-16.0); Lymphocytes Absolute Auto 2100 /uL (1100-4500); Lymphocytes Percent Auto 15.5 % (25-40); Mean Corpuscular HGB Conc 30.5 % (30-36); Mean Corpuscular Hemoglobin 21.5 PG (26-34); Mean Corpuscular Volume 70.4 fL (80-100); Monocytes Absolute Auto 1500 /uL (0-900); Monocytes Percent Auto 11.3 % (3-14); Neutrophils Absolute Auto 9500 /uL (1500-7000); Neutrophils Percent Auto 71.3 % (50-75); Platelet Count 353 X10^3/uL (150-400); Red Blood Cell Count 4.98 X10^6/uL (4.0-5.2); Red Cell Distribution Width 17.6 % (11.6-14.8); White Blood Cell Count 13.4 X10^3/uL (4.5-11.0)
[2018-09-20 12:42] LABS: PTT Partial Thromboplastin Tim 29 SECONDS (26.4-36.2)
[2018-09-20 12:43] LABS: BUN Creatinine Ratio 18.3 (6-22); Blood Urea Nitrogen 11 mg/dL (7-17); Carbon Dioxide 27 mmol/L (22-32); Chloride 103 mmol/L (98-107); Estimated Glomerular Filt Rate > 60.0 mL/min (>60); Glucose 99 mg/dL (70-100); HEMOLYSIS < 15 (0-50); Potassium 3.5 mmol/L (3.4-5.1); Sodium 138 mmol/L (137-145)
[2018-09-20 13:09] VITALS: BP 119/68; PULSE 69; RESP 15; O2SAT 100
[2018-09-20 13:30] VITALS: BP 104/51
[2018-09-20 14:39] LABS: Amorphous Sediment Urine 1+; Bacteria Urine Many (>30); Culture Indicated Urine Specimen Cultured; Mucus Urine 1+ (Negative); RBC Urine 0-1/HPF (0-5/HPF); Squamous Epithelial Cell Urine 1-5 /HPF (0-5/HPF); WBC Urine 5-10/HPF (0-5/HPF)
== END 2018-09-20 14:16 | disposition home or self-care (01) ==
PROVIDERS: Emergency Provider Emergency Medicine
DX: K62.5 Hemorrhage of anus and rectum (principal); K57.92 Diverticulitis of intestine, part unspecified, without perforation or abscess without bleeding; N39.0 Urinary tract infection, site not specified
CPT/HCPCS: 36415; 80048; 81003; 81015; 85025; 85610; 85730; 87077; 87086; 87186; 99282; 99283

== ENCOUNTER 2018-12-16 15:04 | Emergency (ER) | payer OTHER, MEDICAID, SELFPAY ==
[2018-12-16 15:25] VITALS: BP 131/83; PULSE 86; RESP 14; TEMP 37.1; O2SAT 99; BMI 31.1
--- NOTE | 2018-12-16 18:17 | ED_ITS ---
HPI - Dental/Oral <BECKY Perez - Last Filed: 12/16/18 19:19> General Chief complaint: Dental/Oral Stated complaint: MOUTH PAIN Time Seen by Provider: 12/16/18 17:40 Source: patient Mode of arrival: ambulatory Limitations: no limitations History of Present Illness HPI Narrative: The patient is a 48-year-old female current smoker with history of UTIs of dental pain. She states her top left 2nd molar is broken and she is developing an infection. She has not taken anything for the pain. She denies any history of diabetes, IV drug use etc. She denies any fevers nausea vomiting or diarrhea. She states she has not taken anything for the pain has not followed up with a dentist yet. Related Data Previous Rx's Medication Instructions Recorded penicillin V potassium 500 mg PO QID 10 Days #40 tab 12/16/18 Allergies Allergy/AdvReac Type Severity Reaction Status Date / Time No Known Drug Allergies Allergy Verified 12/16/18 15:29 Review of Systems <BECKY Perez - Last Filed: 12/16/18 19:19> Review of Systems GENERAL: Denies chills, fatigue, malaise, fever, sweats. HEENT: See HPI RESPIRATORY: Denies dyspnea, cough, wheezing, hemoptysis, sputum. CARDIOVASCULAR: Denies chest pain, palpitations, orthopnea, edema, GASTROINTESTINAL: Denies nausea, vomiting, abdominal pain, diarrhea, constipation, melena. : Denies dysuria, frequency, incontinence, hematuria, urinary retention. MUSCULOSKELETAL: denies weakness, joint pain, or bony pain SKIN: Denies rash, skin lesions, or other NEUROLOGIC: Denies weakness, headache, numbness, change in speech, confusion, seizures, incoordination. PSYCHIATRIC: No concerning psychosocial issues. 12 point review of systems is negative except for those stated above PFSH <BECKY Perez - Last Filed: 12/16/18 19:19> Medical History Osteoarthritis of lumbar spine (Chronic) Surgical History No history of previous surgery (Chronic) Social History Smoking Status: Never smoker alcohol intake: never substance use type: does not use Social History Smoking Status: Never smoker alcohol intake: never substance use type: does not use Exam <BECKY Perez - Last Filed: 12/16/18 19:19> Narrative Exam Narrative: GENERAL: This is a well-nourished, well-developed patient, no acute distress, sleeping HEAD: Atraumatic. Normocephalic. No temporal or scalp tenderness. EYES: Pupils equal round and reactive. Extraocular motions intact. No scleral icterus. No injection or drainage. ENT: Nose without bleeding, purulent drainage or septal hematoma. Throat without erythema, tonsillar hypertrophy or exudate. Uvula midline. Airway patent. Poor dentition noted. Patient has pain and swelling on the right upper 2nd molar. She has no palpable abscess or fluctuance. NECK: Trachea midline. No JVD or lymphadenopathy. Supple, nontender, no meningeal signs. CARDIOVASCULAR: Regular rate and rhythm RESPIRATORY: Clear to auscultation. Breath sounds equal bilaterally. No wheezes, rales, or rhonchi. No cough. No increased respiratory effort. GASTROINTESTINAL: Abdomen soft, non-tender, nondistended. No hepato- splenomegaly, or palpable masses. No guarding. EXTREMITIES: No clubbing, cyanosis, or edema. No joint tenderness, effusion, or edema noted. BACK: Nontender without deformity or crepitance. No flank tenderness. NEURO: AOx3. Sleepy SKIN: No rash or erythema. Initial Vital Signs Initial Vital Signs: Vital Signs Temperature 98.7 F 12/16/18 15:25 Pulse Rate 86 12/16/18 15:25 Respiratory Rate 14 12/16/18 15:25 Blood Pressure 131/83 12/16/18 15:25 Pulse Oximetry 99 12/16/18 15:25 <Tricia Agosto DO - Last Filed: 12/17/18 07:50> Initial Vital Signs Initial Vital Signs: Vital Signs Temperature 98.7 F 12/16/18 15:25 Pulse Rate 86 12/16/18 15:25 Respiratory Rate 14 12/16/18 15:25 Blood Pressure 131/83 12/16/18 15:25 Pulse Oximetry 99 08/19/19 15:25 Course <Kaity Zamudio [employer] - Last Filed: 12/16/18 19:19> Vital Signs - 8 hr 12/16/18 15:25 12/16/18 18:41 Temperature 98.7 F Pulse Rate 86 72 Respiratory Rate 14 17 Blood Pressure 131/83 Pulse Oximetry 99 98 <Tricia Agosto DO - Last Filed: 12/17/18 07:50> Vital Signs - 8 hr 12/16/18 15:25 12/16/18 18:41 Temperature 98.7 F Pulse Rate 86 72 Respiratory Rate 14 17 Blood Pressure 131/83 Pulse Oximetry 99 98 MDM - Dental/Oral <Kaity ZamudioBECKY - Last Filed: 12/16/18 19:19> MDM Narrative Medical decision making narrative: The patient is a 48-year-old female who presents with a chief complaint of dental pain. She is sleeping in the waiting room, and is in no apparent distress. She does have some broken teeth and poor dentition, so I initiated antibiotics treatment with penicillin encouraged follow-up with dentist. Discussed come back to the ER for any acute concerns such as and we keep down food or fluids. Patient has no signs of systemic illness such as fever, vomiting or diarrhea. No questions or concerns upon discharge. States understanding of follow-up as well as return precautions. Discharge Plan Departure Patient Disposition: Home Clinical Impression: Dental infection Discharge Date/Time: 12/16/18 18:41 Interventions: ED Discharge Assessment Last Done: 12/16/18 18:41 Instructions: Tooth Decay, Tooth Abscess, DI for Dental Pain Activity Restrictions/Additional Instructions: I have given you a prescription for an antibiotic for your dental infection. Please follow up with primary care provider as well as a dentist. Please monitor for fever, inability keep down fluids or any acute concerns. Please come back to emergency department for any acute concerns such as chest pain, shortness of breath etc Prescriptions: New penicillin V potassium 500 mg tablet 500 mg PO QID 10 Days Qty: 40 RF: 0 <Tricia Agosto DO - Last Filed: 12/17/18 07:50> Cosign ED Attending Jaironature Attestation: I was immediately available in the department for consultation. Documentation has been reviewed. I agree with assessment and plan.
[2018-12-16 18:41] VITALS: PULSE 72; RESP 17; O2SAT 98
== END 2018-12-16 18:41 | disposition home or self-care (01) ==
PROVIDERS: Emergency Provider Nurse Practitioner Family
DX: K04.7 Periapical abscess without sinus (principal)
CPT/HCPCS: 99282; 99283

== ENCOUNTER 2019-05-11 14:21 | Emergency (ER) | payer OTHER, MEDICAID, SELFPAY ==
[2019-05-11 14:26] VITALS: BP 116/71; PULSE 89; RESP 16; TEMP 37; O2SAT 98
[2019-05-11 16:12] VITALS: BP 116/75; PULSE 86; RESP 18; O2SAT 99
--- NOTE | 2019-05-11 20:03 | ED.DENTAL ---
HPI - Dental/Oral <BECKY Perez - Last Filed: 05/11/19 20:06> General Chief complaint: Dental/Oral Stated complaint: something in mouth Time Seen by Provider: 05/11/19 15:10 Source: patient Mode of arrival: Ambulatory Limitations: no limitations History of Present Illness HPI Narrative: The patient is a 48-year-old female nonsmoker with history of dental infection who presents with a chief complaint of lump swelling inside of her mouth. She states that it is on the left side, next to her left upper molars. She states it is painful, possibly draining something. She denies any fevers nausea vomiting or diarrhea. She has not taken anything for it. She states has been there for few weeks, but got much worse and more painful in the past 2 days. Related Data Previous Rx's Medication Instructions Recorded penicillin V potassium 500 mg PO QID #40 tab 05/11/19 Allergies Allergy/AdvReac Type Severity Reaction Status Date / Time No Known Drug Allergies Allergy Verified 12/16/18 15:29 Review of Systems <BECKY Perez - Last Filed: 05/11/19 20:06> Review of Systems Narrative: GENERAL: Denies chills, fatigue, malaise, fever, sweats. HEENT: See HPI RESPIRATORY: Denies dyspnea, cough, wheezing, hemoptysis, sputum. CARDIOVASCULAR: Denies chest pain, palpitations, orthopnea, edema, GASTROINTESTINAL: Denies nausea, vomiting, abdominal pain, diarrhea, constipation, melena. : Denies dysuria, frequency, incontinence, hematuria, urinary retention. MUSCULOSKELETAL: denies weakness, joint pain, or bony pain SKIN: Denies rash, skin lesions, or other NEUROLOGIC: Denies weakness, headache, numbness, change in speech, confusion, seizures, incoordination. PSYCHIATRIC: No concerning psychosocial issues. 12 point review of systems is negative except for those stated above Patient History <BECKY Perez - Last Filed: 05/11/19 20:06> Medical History Osteoarthritis of lumbar spine (Chronic) Surgical History No history of previous surgery (Chronic) Social History Smoking Status: Never smoker alcohol intake: never substance use type: does not use Smoking Status: Never smoker alcohol intake frequency: 0-2 drinks per day Substance Use Type: does not use Exam <BECKY Perez - Last Filed: 05/11/19 20:06> Narrative Exam Narrative: GENERAL: This is a well-nourished, well-developed patient, in no acute distress HEAD: Atraumatic. Normocephalic. No temporal or scalp tenderness. EYES: Pupils equal round and reactive. Extraocular motions intact. No scleral icterus. No injection or drainage. ENT: Nose without bleeding, purulent drainage or septal hematoma. Throat without erythema, tonsillar hypertrophy or exudate. Uvula midline. Airway patent. 0.5 cm erythema and swelling noted along left upper molars, lateral side. Slight possible drainage noted, very poor dentition noted. Bilateral TMs pearly ramos. NECK: Trachea midline. No JVD or lymphadenopathy. Supple, nontender, no meningeal signs. CARDIOVASCULAR: Regular rate and rhythm RESPIRATORY: No cough. No increased respiratory effort. No accessory muscle use. EXTREMITIES: No clubbing, cyanosis, or edema. No joint tenderness, effusion, or edema noted. BACK: Nontender without deformity or crepitance. No flank tenderness. NEURO: AOx3. SKIN: No rash or erythema visible skin Initial Vital Signs Initial Vital Signs: Vital Signs Temperature 98.6 F 05/11/19 14:26 Pulse Rate 89 05/11/19 14:26 Respiratory Rate 16 05/11/19 14:26 Blood Pressure 116/71 05/11/19 14:26 Pulse Oximetry 98 05/11/19 14:26 <Barbara Valdez MD - Last Filed: 05/11/19 20:11> Initial Vital Signs Initial Vital Signs: Vital Signs Temperature 98.6 F 05/11/19 14:26 Pulse Rate 89 05/11/19 14:26 Respiratory Rate 16 05/11/19 14:26 Blood Pressure 116/71 05/11/19 14:26 Pulse Oximetry 98 05/11/19 14:26 Course <BECKY Perez - Last Filed: 05/11/19 20:06> Vital Signs Vital signs: Vital Signs - 8 hr 05/11/19 14:26 05/11/19 16:12 Temperature 98.6 F Pulse Rate 89 86 Respiratory Rate 16 18 Blood Pressure 116/71 116/75 Pulse Oximetry 98 99 <Barbara Valdez MD - Last Filed: 05/11/19 20:11> Vital Signs Vital signs: Vital Signs - 8 hr 05/11/19 14:26 05/11/19 16:12 Temperature 98.6 F Pulse Rate 89 86 Respiratory Rate 16 18 Blood Pressure 116/71 116/75 Pulse Oximetry 98 99 MDM - Dental/Oral <OMEGA Perez- - Last Filed: 05/11/19 20:06> MDM Narrative Medical decision making narrative: The patient is a 48-year-old female who presents with a chief complaint of a painful area inside of her mouth, worried about infection. Given her exam, erythema and swelling, I did a trial of penicillin. I did discuss at length with her that she needs to follow up with primary care provider or dentist. Discussed possibility of lesion in mouth it may need to be biopsied. She has no signs of systemic illness, but states understanding of these are return precautions. Patient has no questions or concerns upon discharge and states understanding return precautions as well as follow-up care. Discharge Plan Departure Patient Disposition: Home Clinical Impression: Oral infection Discharge Date/Time: 05/11/19 16:12 Instructions: DI for Tooth Abscess, DI for Dental Pain Activity Restrictions/Additional Instructions: I sent a prescription of penicillin to [facility] on [address] Please take this with probiotic or yogurt to help prevent stomach issues related to antibiotics Please follow-up with primary care provider as I discussed, it is imperative that we make sure this lesion in your mouth get better. If it does not you need further asthma evaluation and possibly a biopsy. Please follow up with primary care provider. I've given the contact information to the [facility] health technology resource teacher. They can help you identify primary care provider. Please come back to the emergency department for any acute concerns such as chest pain, shortness of breath, concern of heart attack or stroke Prescriptions: New penicillin V potassium 500 mg tablet 500 mg PO QID Qty: 40 RF: 0 Referrals: [facility] [Outside]
== END 2019-05-11 16:12 | disposition home or self-care (01) ==
PROVIDERS: Emergency Provider Nurse Practitioner Family
DX: K12.2 Cellulitis and abscess of mouth (principal)
CPT/HCPCS: 99281; 99283

== ENCOUNTER 2019-08-18 17:48 | Emergency (ER) | payer OTHER, MEDICAID, SELFPAY ==
[2019-08-18 17:54] VITALS: BP 102/58; PULSE 95; RESP 20; O2SAT 98
--- NOTE | 2019-08-18 17:59 | ED_ITS ---
HPI - Nausea/Vomiting/Diarrhea General Chief complaint: Nausea/Vomiting/Diarrhea Stated complaint: sick/weakness Time Seen by Provider: 08/18/19 17:59 Source: patient Mode of arrival: Ambulatory Limitations: no limitations History of Present Illness HPI Narrative: 48-year-old female nonsmoker and frequent user of cannabis presents with her and a chief complaint of feeling weak with crampy legs with multiple episodes of nausea, vomiting and diarrhea over the course of the day. She denies any recent travel, new medications or dietary change. She denies fever or chills. She has no headache, blurred vision or numbness, tingling or other focal neurologic findings. She had a marijuana Brownie earlier today which was apparently abnormal for her. She denies dark or tarry stools, coffee-ground emesis or hematemesis. MD complaint: nausea, vomiting and diarrhea Onset (ago): hour(s) Description of Vomiting: food contents Description of Diarrhea: watery Associated Abdominal Pain: No Exacerbating factors: none Associated symptoms: myalgias Related Data Allergies Allergy/AdvReac Type Severity Reaction Status Date / Time No Known Drug Allergies Allergy Verified 08/18/19 18:14 Review of Systems Constitutional Constitutional: Denies chills, Denies fatigue, Denies fever(s), Denies frequent falls, Denies lethargy, Reports poor appetite and Reports weakness Eyes Eyes: Denies change in vision, Denies eye discharge, Denies irritation and Denies loss of vision ENT Ears, Nose, Mouth, and Throat: Denies change in voice, Denies dizziness, Denies neck pain, Denies sore throat and Denies throat swelling Cardiovascular Cardiovascular: Denies chest pain, Denies irregular heart rhythm, Denies lightheadedness, Denies palpitations, Denies dyspnea, Denies dyspnea on exertion and Denies orthopnea Respiratory Respiratory: Denies cough, Denies dyspnea, Denies dyspnea on exertion and Denies wheezing Gastrointestinal Gastrointestinal: Denies abdominal pain, Denies change in bowel habits, Reports diarrhea, Reports nausea and Denies vomiting Genitourinary Genitourinary: Denies hematuria, Denies flank pain, Denies urinary incontinence and Denies urinary urgency Musculoskeletal Musculoskeletal: Denies back pain, Denies muscle weakness, Denies neck pain, Denies numbness and Denies tingling Integumentary/Breasts Skin/Breast: Denies pruritus, Denies erythema, Denies rash and Denies wounds Neurologic Neurologic: Denies behavioral changes, Denies confusion, Denies dizziness, Denies frequent falls, Denies loss of vision, Denies numbness, Denies tingling and Reports weakness Psychiatric Psychiatric: Denies anxiety, Denies behavioral changes, Denies confusion, Denies depression, Denies homicidal ideation and Denies suicidal ideation Endocrine Endocrine: Denies fatigue, Denies flushing and Denies palpitations Hematologic/Lymphatic Hematologic/Lymphatic: Denies easy bruising Allergic/Immunologic Allergic/Immunologic: Denies urticaria, Denies throat swelling and Denies wheezing Patient History Medical History Osteoarthritis of lumbar spine (Chronic) Surgical History No history of previous surgery (Chronic) Social History Smoking Status: Never smoker alcohol intake: never substance use type: does not use Smoking Status: Never smoker alcohol intake frequency: 0-2 drinks per day Substance Use Type: does not use Exam Narrative Exam Narrative: GENERAL: [48] year old patient appears stated age. Well-nour ished, well-developed patient, in mild distress. HEAD: Atraumatic. Normocephalic. EYES: Pupils equal round and reactive. Extraocular motions intact. No scleral icterus. No injection or drainage. ENT: Nose without bleeding, purulent drainage. Throat without erythema, tonsillar hypertrophy or exudate. Airway patent. NECK: Trachea midline. Non tender CARDIOVASCULAR: Regular rate and rhythm without murmurs, gallops, or rubs. RESPIRATORY: Clear to auscultation. Breath sounds equal bilaterally. No wheezes, rales, or rhonchi. GASTROINTESTINAL: Abdomen soft, non-tender, nondistended. EXTREMITIES: No edema or joint tenderness. BACK: Nontender without deformity or crepitance. No flank tenderness. NEURO: AOx3. SKIN: No rash or erythema of visible areas Initial Vital Signs Initial Vital Signs: Vital Signs Pulse Rate 95 H 08/18/19 17:54 Respiratory Rate 20 08/18/19 17:54 Blood Pressure 102/58 L 08/18/19 17:54 Pulse Oximetry 98 08/18/19 17:54 Course Course Course Narrative: patient feeling much better after fluids. WBC rechecked and improved. She ambulates through the department without difficulty. We were preparing to discharge patient but she eloped before instructions could be given, with IV in place. Police were notified, calls placed to number on file. Orders Ordered: ED Orders 08/18/19 17:55 EKG-12 Lead Stat 08/18/19 18:56 Complete Blood Count AUTO DIFF Stat Comprehensive Metabolic Panel Stat Lipase Stat 08/18/19 21:00 Complete Blood Count AUTO DIFF Stat Partial Thromboplastin Time Stat Prothrombin Time INR Stat 08/18/19 22:20 Test Urine Stat Urinalysis and Microscopic Stat Urine Culture Stat Urine Drug Screen, Rapid Stat Discontinued Medications Sodium Chloride (Normal Saline 0.9%) 1,000 mls @ 1,000 mls/hr IV BOLUS ONE Stop: 08/18/19 19:02 Last Infusion: 08/18/19 20:31 Dose: 0 mls/hr Documented by: Admin: 08/18/19 18:06 Dose: 1,000 mls/hr Documented by: ORTIZ Sodium Chloride (Normal Saline 0.9%) 1,000 mls @ 1,000 mls/hr IV BOLUS ONE Stop: 08/18/19 21:31 Last Infusion: 08/18/19 22:14 Dose: 0 mls/hr Documented by: Admin: 08/18/19 21:00 Dose: 1,000 mls/hr Documented by: DEMETRIUS Ondansetron HCl (Zofran) 4 mg IV NOW ONE Stop: 08/18/19 17:55 Last Admin: 08/18/19 18:06 Dose: 4 mg Documented by: ORTIZ Ondansetron HCl (Zofran Odt Prepack) 1 bottle MISC SEEINSTR ONE Stop: 08/18/19 23:03 Vital Signs Vital signs: Vital Signs - 8 hr 08/18/19 17:54 08/18/19 20:35 08/18/19 23:03 Pulse Rate 95 H 89 91 H Respiratory Rate 20 14 16 Blood Pressure 102/58 L Blood Pressure [Left Arm] 114/66 118/71 Pulse Oximetry 98 99 98 MDM - Nausea/Vomiting/Diarrhea Lab Data Result diagrams: 08/18/19 21:00 08/18/19 18:56 Labs: Lab Results 08/18/19 08/18/19 08/18/19 Range/Units 18:56 18:56 21:00 WBC 17.9 H (4.5-11.0) X10^3/uL RBC 5.93 H (4.0-5.2) X10^6/uL Hgb 11.9 L (12.0-16.0) g/dL Hct 39.0 (36-46) % MCV 65.8 L (80-100) fL MCH 20.1 L (26-34) PG MCHC 30.5 (30-36) % RDW 18.5 H (11.6-14.8) % Plt Count 484 H (150-400) X10^3/uL Neut % (Auto) 83.4 H (50-75) % Lymph % (Auto) 5.8 L (25-40) % [place] % (Auto) 7.2 (3-14) % Eos % (Auto) 2.4 (2-4) % Baso % (Auto) 1.2 (0-2) % Neut # (Auto) 77212 H (5770-7535) /uL Lymph # (Auto) 1000 L (2653-0356) /uL [place] # (Auto) 1300 H (0-900) /uL Eos # (Auto) 400 (0-450) /uL Baso # (Auto) 200 H (0-100) /uL RBC Morphology See below Hypochromasia 1+ H Anisocytosis Microcytosis PT 11.3 (10.1-12.7) SECONDS INR 1.0 (0.9-1.3) APTT 29 (26.4-36.2) SECONDS Sodium 141 (137-145) mmol/L Potassium 4.5 (3.4-5.1) mmol/L Chloride 107 (98-107) mmol/L Carbon Dioxide 21 L (22-32) mmol/L BUN 17 (7-17) mg/dL Creatinine 0.87 (0.52-1.04) mg/dL Estimated GFR > 60.0 (>60) mL/min BUN/Creatinine Ratio 19.5 (6-22) Glucose 102 H (70-100) mg/dL Calcium 9.9 (8.4-10.2) mg/dL Total Bilirubin 0.4 (0.2-1.3) mg/dL AST 83 H (14-36) IU/L ALT 110 H (<35) IU/L Alkaline Phosphatase 246 H (38-126) U/L Total Protein 9.3 H (6.3-8.2) g/dL Albumin 4.8 (3.5-5.0) g/dL Globulin 4.5 H (1.7-4.1) g/dL Albumin/Globulin Ratio 1.1 (1.0-2.8) Lipase 155 (23-300) U/L Urine Color Urine Appearance Urine pH (4.5-8.0) Ur Specific [place] (1.000-1.035) Urine Protein (Negative) Urine Glucose (UA) (Negative) g/dL Urine Ketones (NEGATIVE) Urine Occult Blood (Negative) Urine Nitrate (Negative) Urine Bilirubin (NEGATIVE) Urine Urobilinogen (0.2) E.U./dL Ur Leukocyte Esterase (NEGATIVE) Urine RBC (0-5/HPF) Urine WBC (0-5/HPF) Ur Squamous Epith Cells (0-5/HPF) Urine Bacteria (None) Ur Culture Indicated? Urine Test (Negative) U Opiates 300ng/mL cut (Negative) Ur Oxycodone Screen (Negative) Urine Methadone Screen (Negative) Ur Barbiturates Screen (Negative) U Tricyclic Antidepress (Negative) Ur Phencyclidine Scrn (Negative) Ur Amphetamines Screen (Negative) U Methamphetamines Scrn (Negative) Ur MDMA Scrn (Ecstasy) (Negative) U Benzodiazepines Scrn (Negative) Urine Cocaine Screen (Negative) U Marijuana (THC) Screen (Negative) 08/18/19 08/18/19 08/18/19 Range/Units 21:00 22:20 22:20 WBC 14.3 H (4.5-11.0) X10^3/uL RBC 4.82 (4.0-5.2) X10^6/uL Hgb 9.7 L (12.0-16.0) g/dL Hct 31.6 L (36-46) % MCV 65.5 L (80-100) fL MCH 20.2 L (26-34) PG MCHC 30.8 (30-36) % RDW 17.9 H (11.6-14.8) % Plt Count 438 H (150-400) X10^3/uL Neut % (Auto) 86.1 H (50-75) % Lymph % (Auto) 6.6 L (25-40) % [place] % (Auto) 5.6 (3-14) % Eos % (Auto) 1.4 L (2-4) % Baso % (Auto) 0.3 (0-2) % Neut # (Auto) 47043 H (2375-9952) /uL Lymph # (Auto) 900 L (5990-3188) /uL [place] # (Auto) 800 (0-900) /uL Eos # (Auto) 200 (0-450) /uL Baso # (Auto) 0 (0-100) /uL RBC Morphology See below Hypochromasia Anisocytosis 1+ H Microcytosis 1+ H PT (10.1-12.7) SECONDS INR (0.9-1.3) APTT (26.4-36.2) SECONDS Sodium (137-145) mmol/L Potassium (3.4-5.1) mmol/L Chloride (98-107) mmol/L Carbon Dioxide (22-32) mmol/L BUN (7-17) mg/dL Creatinine (0.52-1.04) mg/dL Estimated GFR (>60) mL/min BUN/Creatinine Ratio (6-22) Glucose (70-100) mg/dL Calcium (8.4-10.2) mg/dL Total Bilirubin (0.2-1.3) mg/dL AST (14-36) IU/L ALT (<35) IU/L Alkaline Phosphatase (38-126) U/L Total Protein (6.3-8.2) g/dL Albumin (3.5-5.0) g/dL Globulin (1.7-4.1) g/dL Albumin/Globulin Ratio (1.0-2.8) Lipase (23-300) U/L Urine Color Yellow Urine Appearance Clear Urine pH 5.0 (4.5-8.0) Ur Specific [place] 1.025 (1.000-1.035) Urine Protein Negative (Negative) Urine Glucose (UA) Negative (Negative) g/dL Urine Ketones Negative (NEGATIVE) Urine Occult Blood Trace-intact (Negative) Urine Nitrate Positive H (Negative) Urine Bilirubin Negative (NEGATIVE) Urine Urobilinogen 0.2 (0.2) E.U./dL Ur Leukocyte Esterase Trace H (NEGATIVE) Urine RBC None seen (0-5/HPF) Urine WBC 1-5/hpf (0-5/HPF) Ur Squamous Epith Cells 0-1 /hpf (0-5/HPF) Urine Bacteria Many (>30) H (None) Ur Culture Indicated? Specimen cultured Urine Test (Negative) U Opiates 300ng/mL cut Negative (Negative) Ur Oxycodone Screen Negative (Negative) Urine Methadone Screen Negative (Negative) Ur Barbiturates Screen Negative (Negative) U Tricyclic Antidepress Negative (Negative) Ur Phencyclidine Scrn Negative (Negative) Ur Amphetamines Screen Positive H (Negative) U Methamphetamines Scrn Positive H (Negative) Ur MDMA Scrn (Ecstasy) Negative (Negative) U Benzodiazepines Scrn Negative (Negative) Urine Cocaine Screen Negative (Negative) U Marijuana (THC) Screen Positive H (Negative) 04/20/20 Range/Units 22:20 WBC (4.5-11.0) X10^3/uL RBC (4.0-5.2) X10^6/uL Hgb (12.0-16.0) g/dL Hct (36-46) % MCV (80-100) fL MCH (26-34) PG MCHC (30-36) % RDW (11.6-14.8) % Plt Count (150-400) X10^3/uL Neut % (Auto) (50-75) % Lymph % (Auto) (25-40) % [place] % (Auto) (3-14) % Eos % (Auto) (2-4) % Baso % (Auto) (0-2) % Neut # (Auto) (6333-2576) /uL Lymph # (Auto) (4844-9129) /uL [place] # (Auto) (0-900) /uL Eos # (Auto) (0-450) /uL Baso # (Auto) (0-100) /uL RBC Morphology Hypochromasia Anisocytosis Microcytosis PT (10.1-12.7) SECONDS INR (0.9-1.3) APTT (26.4-36.2) SECONDS Sodium (137-145) mmol/L Potassium (3.4-5.1) mmol/L Chloride (98-107) mmol/L Carbon Dioxide (22-32) mmol/L BUN (7-17) mg/dL Creatinine (0.52-1.04) mg/dL Estimated GFR (>60) mL/min BUN/Creatinine Ratio (6-22) Glucose (70-100) mg/dL Calcium (8.4-10.2) mg/dL Total Bilirubin (0.2-1.3) mg/dL AST (14-36) IU/L ALT (<35) IU/L Alkaline Phosphatase (38-126) U/L Total Protein (6.3-8.2) g/dL Albumin (3.5-5.0) g/dL Globulin (1.7-4.1) g/dL Albumin/Globulin Ratio (1.0-2.8) Lipase (23-300) U/L Urine Color Urine Appearance Urine pH (4.5-8.0) Ur Specific [place] (1.000-1.035) Urine Protein (Negative) Urine Glucose (UA) (Negative) g/dL Urine Ketones (NEGATIVE) Urine Occult Blood (Negative) Urine Nitrate (Negative) Urine Bilirubin (NEGATIVE) Urine Urobilinogen (0.2) E.U./dL Ur Leukocyte Esterase (NEGATIVE) Urine RBC (0-5/HPF) Urine WBC (0-5/HPF) Ur Squamous Epith Cells (0-5/HPF) Urine Bacteria (None) Ur Culture Indicated? Urine Test Negative (Negative) U Opiates 300ng/mL cut (Negative) Ur Oxycodone Screen (Negative) Urine Methadone Screen (Negative) Ur Barbiturates Screen (Negative) U Tricyclic Antidepress (Negative) Ur Phencyclidine Scrn (Negative) Ur Amphetamines Screen (Negative) U Methamphetamines Scrn (Negative) Ur MDMA Scrn (Ecstasy) (Negative) U Benzodiazepines Scrn (Negative) Urine Cocaine Screen (Negative) U Marijuana (THC) Screen (Negative) Discharge Plan Departure Patient Disposition: Home Clinical Impression: Vomiting and diarrhea Discharge Date/Time: 08/18/19 23:13 Instructions: DI for Dehydration -- Adult, DI for Nausea -- Adult, DI for Vomiting -- Adult Activity Restrictions/Additional Instructions: 1. Drink plenty of fluids with frequent small sips. 2. For the next 24 hours a clear liquid diet is advised. After that please employ a brat diet which would include bananas, rice, apples, toast. 3. Please take medications as directed. 4. Please follow-up with your doctor in the next 1-2 days. Call the office for an appointment. 5. Please return to the emergency Department for any worsening or persistent symptoms, such as increasing pain or fever. Referrals: [facility] [Outside]
[2019-08-18] MEDS: ONDANSETRON 4 MG/2 ML INJ IV (18:06)
[2019-08-18] MEDS: SODIUM CHLORIDE 0.9% 1,000 ML 1000 ML IV ×2 (18:06→21:00)
[2019-08-18 18:56] LABS: Add Manual Diff / Slide Review NO; Basophils Absolute Auto 200 /uL (0-100); Basophils Percent Auto 1.2 % (0-2); Eosinophils Absolute Auto 400 /uL (0-450); Eosinophils Percent Auto 2.4 % (2-4); Hemoglobin 11.9 g/dL (12.0-16.0); Lymphocytes Absolute Auto 1000 /uL (1100-4500); Lymphocytes Percent Auto 5.8 % (25-40); Mean Corpuscular HGB Conc 30.5 % (30-36); Mean Corpuscular Hemoglobin 20.1 PG (26-34); Mean Corpuscular Volume 65.8 fL (80-100); Monocytes Absolute Auto 1300 /uL (0-900); Monocytes Percent Auto 7.2 % (3-14); Neutrophils Absolute Auto 15000 /uL (1500-7000); Neutrophils Percent Auto 83.4 % (50-75); Platelet Count 484 X10^3/uL (150-400); Red Blood Cell Count 5.93 X10^6/uL (4.0-5.2); Red Cell Distribution Width 18.5 % (11.6-14.8); White Blood Cell Count 17.9 X10^3/uL (4.5-11.0)
[2019-08-18 19:17] LABS: Alanine Aminotransferase 110 IU/L (<35); Albumin 4.8 g/dL (3.5-5.0); Albumin Globulin Ratio 1.1 (1.0-2.8); Alkaline Phosphatase 246 U/L (38-126); Aspartate Aminotransferase 83 IU/L (14-36); BUN Creatinine Ratio 19.5 (6-22); Bilirubin Total 0.4 mg/dL (0.2-1.3); Blood Urea Nitrogen 17 mg/dL (7-17); Calcium 9.9 mg/dL (8.4-10.2); Carbon Dioxide 21 mmol/L (22-32); Chloride 107 mmol/L (98-107); Estimated Glomerular Filt Rate > 60.0 mL/min (>60); Globulin 4.5 g/dL (1.7-4.1); Glucose 102 mg/dL (70-100); HEMOLYSIS < 15 (0-50); Lipase 155 U/L (23-300); Potassium 4.5 mmol/L (3.4-5.1); Sodium 141 mmol/L (137-145); Total Protein 9.3 g/dL (6.3-8.2)
[2019-08-18 19:20] LABS: Hypochromasia 1+
[2019-08-18 20:35] VITALS: BP 114/66; PULSE 89; RESP 14; O2SAT 99
[2019-08-18 21:10] LABS: Add Manual Diff / Slide Review NO; Basophils Absolute Auto 0 /uL (0-100); Basophils Percent Auto 0.3 % (0-2); Eosinophils Absolute Auto 200 /uL (0-450); Eosinophils Percent Auto 1.4 % (2-4); Hematocrit 31.6 % (36-46); Hemoglobin 9.7 g/dL (12.0-16.0); Lymphocytes Absolute Auto 900 /uL (1100-4500); Lymphocytes Percent Auto 6.6 % (25-40); Mean Corpuscular HGB Conc 30.8 % (30-36); Mean Corpuscular Hemoglobin 20.2 PG (26-34); Mean Corpuscular Volume 65.5 fL (80-100); Monocytes Absolute Auto 800 /uL (0-900); Monocytes Percent Auto 5.6 % (3-14); Neutrophils Absolute Auto 12300 /uL (1500-7000); Neutrophils Percent Auto 86.1 % (50-75); Red Blood Cell Count 4.82 X10^6/uL (4.0-5.2); Red Cell Distribution Width 17.9 % (11.6-14.8); White Blood Cell Count 14.3 X10^3/uL (4.5-11.0)
[2019-08-18 21:16] LABS: Prothrombin Time 11.3 SECONDS (10.1-12.7)
[2019-08-18 21:19] LABS: PTT Partial Thromboplastin Tim 29 SECONDS (26.4-36.2)
[2019-08-18 21:29] LABS: Anisocytosis 1+; Microcytosis 1+; Platelet Count 438 X10^3/uL (150-400)
[2019-08-18 22:28] LABS: RBC Urine None Seen (0-5/HPF)
[2019-08-18 22:30] LABS: Appearance Urine UA CLEAR; Bilirubin Urine UA NEGATIVE (NEGATIVE); Color Urine UA YELLOW; Glucose Urine UA NEGATIVE (Negative); Ketones Urine UA NEGATIVE (NEGATIVE); Leukocyte Esterase Urine UA TRACE (NEGATIVE); Nitrite Urine UA POSITIVE (Negative); Occult Blood Urine UA TRACE-INTACT (Negative); Protein Urine UA NEGATIVE (Negative); Specific Gravity Urine UA 1.025 (1.000-1.035); Urobilinogen Urine UA 0.2 E.U./dL (0.2)
[2019-08-18 22:33] LABS: UR Morphine/Opiate cutoff 300 Negative (Negative); Ur Creatinine Normal (Normal); Ur Specific Gravity Normal (Normal); Urine Amphetamines Positive (Negative); Urine Barbiturates Negative (Negative); Urine Benzodiazepines Negative (Negative); Urine Cocaine Negative (Negative); Urine MDMA Negative (Negative); Urine Methadone Negative (Negative); Urine Methamphetamines Positive (Negative); Urine Oxycodone Negative (Negative); Urine Phencyclidine Negative (Negative); Urine Tetrahydrocannabinol Positive (Negative); Urine Tricyclic Antidepressant Negative (Negative); Urine pH Normal (Normal)
[2019-08-18 22:34] LABS: Pregnancy Test Urine Negative (Negative)
[2019-08-18 22:37] LABS: Bacteria Urine Many (>30); Culture Indicated Urine Specimen Cultured; Squamous Epithelial Cell Urine 0-1 /HPF (0-5/HPF); WBC Urine 1-5/HPF (0-5/HPF)
[2019-08-18 23:03] VITALS: BP 118/71; PULSE 91; RESP 16; O2SAT 98
== END 2019-08-18 23:13 | disposition home or self-care (01) ==
PROVIDERS: Emergency Medicine; Emergency Provider Emergency Medicine
DX: R11.2 Nausea with vomiting, unspecified (principal); R19.7 Diarrhea, unspecified; F12.90 Cannabis use, unspecified, uncomplicated
CPT/HCPCS: 36415; 80053; 80305; 81001; 81025; 83690; 85025; 85610; 85730; 87077; 87086; 87186; 96361; 96374; 99284; J2405

== ENCOUNTER → 2019-09-24 14:09 | Outpatient (CLI) | payer OTHER, MEDICAID, SELFPAY ==
--- NOTE | 2019-09-24 | DI.MG.S_ITS ---
BILATERAL DIGITAL DIAGNOSTIC MAMMOGRAM 3D/2D: 09/24/2019 CLINICAL: Baseline exam. Left breast mass. Baseline exam. No prior exams were available for comparison. There are scattered fibroglandular elements in both breasts. No significant masses, calcifications, or other findings are seen in either breast. No mass or calcifications seen in the region of palpable abnormality in the left breast. IMPRESSION: INCOMPLETE: NEEDS ADDITIONAL IMAGING EVALUATION No significant masses, calcifications, or other findings are seen in either breast. Recommend targeted ultrasound of the palpable abnormality in the left breast which will immediately follow. This exam was interpreted at Station ID: [id number]. NOTE: For mammograms, a report in lay terms will be sent to the patient. Approximately 15% of breast malignancies will not be visualized mammographically. In the management of a palpable breast mass, a negative mammogram must not discourage biopsy of a clinically suspicious lesion. Electronically Signed By: Paresh Teresa M.D. [facility]/:09/24/2019 14:58:09 ACR BI-RADS Category 0: Incomplete [id number]
--- NOTE | 2019-09-24 | DI.US.S_ITS ---
LIMITED ULTRASOUND OF LEFT BREAST: 09/24/2019 CLINICAL: Palpable left breast lump. Baseline ultrasound. Comparison is made to exam dated: 09/24/2019 [facility]. Color flow and real-time ultrasound of the left breast were performed. [place] scale images of the real-time examination were reviewed. No finding in the region of the palpable abnormality in the lateral left breast. IMPRESSION: NEGATIVE There is no sonographic evidence of malignancy in the region of the palpable abnormality. Patient is advised to monitor the area for significant change. Return to annual mammogram screening schedule is recommended. Exam findings and recommendation were conveyed to the patient by the Customer Service Trainer. This exam was interpreted at Station ID: [id number]. Electronically Signed By: Paresh Teresa M.D. [facility] [place]/:09/24/2019 16:05:48 letter sent: Normal Exam Ultrasound BI-RADS: 1 Negative
== END ==
PROVIDERS: Referring Provider Family Medicine; Visit Provider Family Medicine
DX: R92.8 Other abnormal and inconclusive findings on diagnostic imaging of breast (principal); N63.20 Unspecified lump in the left breast, unspecified quadrant
CPT/HCPCS: 76642; 77066; G0279

== ENCOUNTER 2020-02-27 20:36 | Emergency (ER) | payer OTHER, MEDICAID, SELFPAY ==
[2020-02-27 20:42] VITALS: BP 110/63; PULSE 96; RESP 22; TEMP 36.9; O2SAT 100
[2020-02-27] MEDS: ONDANSETRON 4 MG ODT SL (21:14)
--- NOTE | 2020-02-27 21:25 | ED.NAVMDI ---
HPI - Nausea/Vomiting/Diarrhea General Chief complaint: Nausea/Vomiting/Diarrhea Stated complaint: VOMITING Time Seen by Provider: 02/27/20 20:37 Source: patient Mode of arrival: Ambulatory Limitations: no limitations History of Present Illness HPI Narrative: Patient is 49-year-old female here for evaluation of nausea vomiting and diarrhea. She states that her symptoms have been going on throughout today. She used to have nausea medicine at home but has run out. She states that her belly is sore from all of the vomiting although she is not having specific abdominal pain. Not throwing up any blood. Has not tried anything for symptoms prior to arrival. Related Data Previous Rx's Medication Instructions Recorded ondansetron 4 mg PO Q6H PRN #10 tab 02/27/20 Allergies Allergy/AdvReac Type Severity Reaction Status Date / Time No Known Drug Allergies Allergy Verified 08/18/19 18:14 Review of Systems Constitutional Constitutional: Denies fever(s) Cardiovascular Cardiovascular: Denies dyspnea Respiratory Respiratory: Denies dyspnea Gastrointestinal Gastrointestinal: Reports abdominal pain, Reports diarrhea, Reports nausea and Reports vomiting Genitourinary Genitourinary: Denies dysuria Genitourinary: Denies dysuria Integumentary/Breasts Skin/Breast: Denies rash Hematologic/Lymphatic Hematologic/Lymphatic: Denies easy bleeding and Denies easy bruising Patient History Medical History Osteoarthritis of lumbar spine (Chronic) Surgical History No history of previous surgery (Chronic) Social History Smoking Status: Never smoker alcohol intake: never substance use type: does not use Smoking Status: Never smoker alcohol intake frequency: 0-2 drinks per day Substance Use Type: does not use Exam Initial Vital Signs Initial Vital Signs: Vital Signs Temperature 98.4 F 02/27/20 20:42 Pulse Rate 96 H 02/27/20 20:42 Respiratory Rate 22 02/27/20 20:42 Blood Pressure 110/63 02/27/20 20:42 Pulse Oximetry 100 02/27/20 20:42 Const General: cooperative and comfortable Resp Effort & Inspection: normal respiratory effort Cardio Rate: regular rate GI Inspection: non-distended Palpation: soft Skin Lesions: no lesions Rashes: no rashes Extrem General: capillary refill normal Course Orders Ordered: Discontinued Medications Sodium Chloride (Normal Saline 0.9%) 1,000 mls @ 1,000 mls/hr IV BOLUS ONE Stop: 02/27/20 21:41 Last Admin: 02/27/20 21:34 Dose: Not Given Documented by: TRISHA Ondansetron HCl (Zofran) 4 mg IV NOW ONE Stop: 02/27/20 20:43 Last Admin: 02/27/20 21:34 Dose: Not Given Documented by: KATHERINEARTIN Ondansetron HCl (Zofran Odt) 4 mg SL NOW ONE Stop: 02/27/20 21:13 Last Admin: 02/27/20 21:14 Dose: 4 mg Documented by: KATHERINEARTIN Ondansetron HCl (Zofran Odt Prepack) 1 bottle MISC SEEINSTR ONE Stop: 02/27/20 22:04 Last Admin: 02/27/20 22:08 Dose: 1 bottle Documented by: TRISHA Vital Signs Vital signs: Vital Signs - 8 hr 02/27/20 20:42 02/27/20 21:37 02/27/20 22:00 Temperature 98.4 F Pulse Rate 96 H 86 88 Respiratory Rate 22 16 Blood Pressure 110/63 102/67 108/72 Pulse Oximetry 100 99 100 MDM - Nausea/Vomiting/Diarrhea MDM Narrative Medical decision making narrative: Multiple times and attempting an IV were unsuccessful. She was given an ODT Zofran which she states improved her symptoms tremendously. She was then able to tolerate oral intake to include ice and also liquid. She had a benign abdominal exam. Given the fact that she is now able to tolerate oral intake of feel that we can hold on an IV. I feel we can hold on lab work for any radiologic studies for now. Patient was given return precautions and follow-up instructions. She expressed understanding and agreement. Discharge Plan Departure Patient Disposition: Home Clinical Impression: Acute vomiting Discharge Date/Time: 02/27/20 22:20 Instructions: DI for Vomiting -- Adult Activity Restrictions/Additional Instructions: Be sure to increase your fluid intake by drinking small amounts of fluid over longer periods of. Contact her primary provider for follow-up. Take the nausea medicine as needed. Return to the emergency department for any new or worsening symptoms Prescriptions: New ondansetron 4 mg tablet,disintegrating 4 mg PO Q6H PRN (Reason: nausea and vomiting) Qty: 10 RF: 0
--- NOTE | 2020-02-27 21:35 | PC.NURSE ---
Multiple IV starts attempted and unsuccessful. Patient requested PO fluids. Provider notified. Given SL Zofran and provided with ice chips and water. Patient tolerating both well.
[2020-02-27 21:37] VITALS: BP 102/67; PULSE 86; RESP 16; O2SAT 98; O2SAT 99
[2020-02-27 22:00] VITALS: BP 108/72; PULSE 88; O2SAT 100
[2020-02-27] MEDS: ONDANSETRON 4 MG ODT PREPACK 1 BOTTLE MISC (22:08)
== END 2020-02-27 22:20 | disposition home or self-care (01) ==
PROVIDERS: Emergency Provider Emergency Medicine
DX: R11.2 Nausea with vomiting, unspecified (principal); R19.7 Diarrhea, unspecified; R10.9 Unspecified abdominal pain
CPT/HCPCS: 99283

== ENCOUNTER 2020-11-15 20:41 | Emergency (ER) | payer OTHER, MEDICAID, SELFPAY ==
[2020-11-15 20:43] VITALS: BP 141/81; PULSE 85; RESP 16; TEMP 36.7; O2SAT 99
[2020-11-15] MEDS: PROPARACAINE 0.5% OPHTH SOL 1 DROPS EYE-LEFT (23:06)
[2020-11-15] MEDS: FLUORESCEIN 1 MG STRIP EYE-LEFT (23:07)
== END 2020-11-16 00:18 | disposition left against medical advice (07) ==
PROVIDERS: Emergency Provider Emergency Medicine
DX: T15.92XA Foreign body on external eye, part unspecified, left eye, initial encounter (principal)
CPT/HCPCS: 99282

== ENCOUNTER 2020-11-26 20:04 | Emergency (ER) | payer OTHER, MEDICAID, SELFPAY ==
[2020-11-26 20:21] VITALS: BP 113/68; PULSE 104; RESP 20; TEMP 37.6; O2SAT 98; BMI 35.5
[2020-11-26 20:45] LABS: COVID19 -Nasal RAPID POSITIVE (Negative)
--- NOTE | 2020-11-26 22:27 | PC.NURSE ---
Pt VDC, called and made aware of covid + status. Encouraged to follow CDC recommendations for covid and to f/u as needed and indicated and return for any needs, concerns, worsening of symptoms.
== END 2020-11-26 22:28 | disposition left against medical advice (07) ==
PROVIDERS: Emergency Provider Emergency Medicine
DX: U07.1 COVID-19 (principal)
CPT/HCPCS: 87635; 99281; C9803

== ENCOUNTER 2025-01-04 20:39 | Emergency (ER) | payer OTHER, MEDICAID, SELFPAY ==
[2025-01-04 20:46] VITALS: BP 145/81; PULSE 98; RESP 18; TEMP 37.2; O2SAT 100; BMI 37.8
--- NOTE | 2025-01-04 21:23 | ED_ITS ---
HPI - Abdominal Pain General Chief Complaint: Vaginal Bleeding Stated Complaint: Abdominal Pain, Back Pain, Vaginal Bleeding x4days Time Seen by Provider: 01/04/25 21:23 Source: patient Mode of arrival: Ambulatory History of Present Illness HPI narrative: Patient is a 54-year-old female without any significant past medical history comes into the ED from home for evaluation of vaginal bleeding. She states that this is her 5th day of her. It has been having a more heavier. , states that she has been passing large clots, states that she did go through 3 heavy pads an hour. She denies any other symptoms at this time, she denies any blood thinners. She denies any actual abdominal pain. Related Data Previous Rx's ?Medication ?Instructions ?Recorded ondansetron 4 mg disintegrating 4 mg PO Q6H PRN nausea and 02/27/20 tablet vomiting #10 tabs Allergies Allergy/AdvReac Type Severity Reaction Status Date / Time No Known Drug Allergies Allergy Verified 11/26/20 20:20 Review of Systems Review of Systems Narrative: General: Denies fever, chills, weight loss HEENT: Denies headache, eye drainage, eye irritation, head trauma, sore throat, voice change Cardiovascular: Denies any chest pain, palpitations, tachycardia Respiratory: Denies any shortness of breath, cough, wheeze, stridor GI/: Positive vaginal bleeding Denies any abdominal pain, nausea, vomiting, diarrhea, bright red blood per rectum, melanotic stools, urinary frequency, urinary retention, dysuria, hematuria MSK: Denies any joint pain, muscle pains, swelling Skin: Denies any rashes, lesions, discoloration Neuro: Denies any headache, lightheadedness, dizziness, fainting, weakness Psych: Denies SI/HI Patient History Medical History (Updated 01/04/25 @ 23:45 by Nasir Sanchez DO) Osteoarthritis of lumbar spine Surgical History No history of previous surgery Social History alcohol intake: never substance use type: does not use alcohol intake frequency: holidays/special occasions only Exam Narrative Exam Narrative: General: Cooperative, well-developed, not in acute distress HEENT: Normocephalic, atraumatic, PERRLA, normal sclera, eyelids normal Neck: Active full range of motion, atraumatic Chest: Normal to inspection, negative crepitus, no overlying erythema ecchymosis Respiratory: Normal respiratory effort, not in acute respiratory distress, clear to auscultation bilaterally negative cough, wheeze, tachypnea, rhonchi, rales Cardiology: Regular rate rhythm negative gallop, murmur, rubs GI/: No tenderness to palpation, soft, non rigid, normal to inspection, exam deferred MSK: Full active range of motion in all 4 extremities, atraumatic, no tenderness to palpation of any bony prominences Skin: No rashes or lesions noted Neuro: Alert awake oriented x3, moves all 4 extremities spontaneously, cranial nerves intact, able to answer all questions appropriately follows commands appropriately Psych: Cooperative, negative suicidal or homicidal ideations Initial Vital Signs Initial Vital Signs: Vital Signs Temperature 98.9 F 01/04/25 20:46 Pulse Rate 98 H 01/04/25 20:46 Respiratory Rate 18 01/04/25 20:46 Blood Pressure 145/81 H 01/04/25 20:46 Pulse Oximetry 100 01/04/25 20:46 Oxygen Delivery Method Room Air 01/04/25 20:46 Course Orders Ordered: ED Orders 01/04/25 21:25 US pelvic complete Stat 01/04/25 22:20 CBC Auto Diff [Complete Blood Count AUTO DIFF] Stat CMP [Comprehensive Metabolic Panel] Stat PT [Prothrombin Time INR] Stat PTT Partial Thromboplastin Rudy Stat Type and Screen Stat Vital Signs Vital signs: Vital Signs - 8 hr 01/04/25 20:46 01/04/25 22:54 01/04/25 22:55 Temperature 98.9 F Pulse Rate 98 H 83 88 Respiratory Rate 18 Blood Pressure 145/81 H Pulse Oximetry 100 97 98 Oxygen Delivery Method Room Air 01/04/25 22:55 01/04/25 23:00 01/04/25 23:00 Temperature Pulse Rate 90 Respiratory Rate Blood Pressure 132/79 125/81 Pulse Oximetry 98 Oxygen Delivery Method MDM - Abdominal Pain Lab Data 01/04/25 22:20 01/04/25 22:20 Labs: Lab Results 01/04/25 Range/Units 22:20 WBC 6.6 (4.5-11.0) X10^3/uL RBC 4.36 (4.0-5.2) X10^6/uL Hgb 10.7 L (12.0-16.0) g/dL Hct 32.5 L (36-46) % MCV 74.6 L (80-100) fL MCH 24.5 L (26-34) PG MCHC 32.8 (30-36) % RDW 16.6 H (11.6-14.8) % Plt Count 292 (150-400) X10^3/uL Neut % (Auto) 43.4 L (50-75) % Lymph % (Auto) 39.0 (25-40) % [place] % (Auto) 11.2 (3-14) % Eos % (Auto) 4.6 H (2-4) % Baso % (Auto) 1.8 (0-2) % Neut # (Auto) 2900 (2129-6339) /uL Lymph # (Auto) 2600 (9021-5656) /uL [place] # (Auto) 700 (0-900) /uL Eos # (Auto) 300 (0-450) /uL Baso # (Auto) 100 (0-100) /uL PT 10.3 (9.4-12.5) SECONDS INR 0.9 (0.9-1.3) APTT 29 (25.1-36.5) SECONDS Sodium 138 (137-145) mmol/L Potassium 3.8 (3.4-5.1) mmol/L Chloride 105 (98-107) mmol/L Carbon Dioxide 26 (22-32) mmol/L BUN 14 (7-17) mg/dL Creatinine 0.86 (0.52-1.04) mg/dL Estimated GFR > 60 (>60) mL/min BUN/Creatinine Ratio 16.3 (6-22) Glucose 96 (70-99) mg/dL Calcium 9.0 (8.4-10.2) mg/dL Total Bilirubin 0.3 (0.2-1.3) mg/dL AST 106 H (14-36) IU/L ALT 89 H (<35) IU/L Alkaline Phosphatase 230 H (38-126) U/L Total Protein 8.4 H (6.3-8.2) g/dL Albumin 4.0 (3.5-5.0) g/dL Globulin 4.4 H (1.7-4.1) g/dL Albumin/Globulin Ratio 0.9 L (1.0-2.8) MDM Narrative Medical decision making narrative: Patient is a 54-year-old female without any significant past medical history comes into the ED from home for evaluation of vaginal bleeding ongoing persistent for the past 5 days, she states that this is her 5th day of her period has been having a heavier period than normal has passed some large clots, she states that she went through 3 heavy pads an hour today. 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 She denies any blood thinners denies any trauma or falls. Ultrasound was performed here did show focus of heterogeneous echogenicity within the endometrium without increased vascularity overall nonspecific possible area of clot versus fibroid, also noted to have uterine fibroid, otherwise unremarkable. Patient's hemoglobin at baseline 10.7, patient was given dose of IV Toradol to help with symptoms, she was instructed to follow up with OBGYN and primary care in outpatient setting she verbalized understanding of this and agrees to being discharged home with outpatient follow up Discharge Plan Departure Patient Disposition: Home Clinical Impression: Fibroid, uterine, Menorrhagia Instructions: DI for Menorrhagia Activity Restrictions/Additional Instructions: Please follow up with OBGYN and primary care doctor Please read the discharge instructions sheet carefully and bring all papers to all doctor follow-up visits, as it may contain information that your doctor may want to see. Disease processes change and evolve, if your symptoms worsen or if you develop any new symptoms that are concerning to you please return for evaluation. Your evaluation today does not show any evidence of any life- threatening/serious illnesses requiring admission to the hospital or surgery. Please follow-up with your doctor for re-evaluation in approximately 1 day. Seek immediate medical attention for any worrisome symptoms. *If you do not have a primary care provider please contact the [facility] Resource line at [phone]. They will ask some questions about your medical history and help get you set up with a doctor in the community. Prescriptions: No Action ondansetron 4 mg tablet,disintegrating 4 mg PO Q6H PRN (Reason: nausea and vomiting) Qty: 10 0RF Referrals: Carole Zacarias DO [Physician, [employer]INE[employer]] Stand Alone Forms: Patient Portal/API
--- NOTE | 2025-01-04 21:25 | DI.US.S_ITS ---
PROCEDURE: US PELVIC COMPLETE INDICATIONS: EXCESSIVE VAGINAL BLEEDING TECHNIQUE: Real-time scanning was performed of the pelvic organs, with image documentation. Additional endovaginal scanning was necessary due to incomplete visualization of the adnexal and endometrial structures by transabdominal scanning. COMPARISON: None. FINDINGS: Uterus: Uterus is anteverted and normal in size at 9.4 x 5.9 x 4.9 cm. The myometrium is homogeneous. The endometrium measures 2.2 mm combined thickness. Trace endometrial fluid. Focus of mild increased echogenicity without vascularity is present measuring 2.3 cm. There is a right anterior intramural focus of heterogeneous echogenicity measuring 2.0 cm. Ovaries: The right ovary is not visualized. The left ovary measures 1.8 x 1.1 x 1.4 cm, with a calculated ovarian volume of 1.4 cc. The ovaries have a normal sonographic appearance. Less than 12 follicles can be seen in each ovary. No adnexal masses are seen. Other: No pathologic free abdominal or pelvic fluid. IMPRESSION: Focus of heterogeneous echogenicity within the endometrium without increased vascularity. This is overall nonspecific and may represent an area of clot or potential atypical appearance fibroids. 6 week interval follow-up is recommended to exclude presence underlying. Uterine fibroid. We strive to produce accurate, complete, and clear reports of imaging services. To assist us in improving patient care, this report was composed using standard report templates and voice recognition software. Therefore, it may contain abnormal punctuation, insertions and/or omissions. Occasional wrong-word or sound-alike substitutions may occur. Though we review the report and make efforts to correct it, we do recommend that the report be read carefully in proper context to recognize any text inaccuracies. Dictated by: Rosita Richardson M.D. on 01/04/2025 at 23:07 Approved by: Rosita Richardson M.D. on 01/04/2025 at 23:09
[2025-01-04 22:50] LABS: Add Manual Diff / Slide Review NO; Hematocrit 32.5 % (36-46); Hemoglobin 10.7 g/dL (12.0-16.0); Lymphocytes Absolute Auto 2600 /uL (1100-4500); Mean Corpuscular HGB Conc 32.8 % (30-36); Mean Corpuscular Hemoglobin 24.5 PG (26-34); Mean Corpuscular Volume 74.6 fL (80-100); Platelet Count 292 X10^3/uL (150-400)
[2025-01-04 22:54] VITALS: PULSE 83; O2SAT 97
[2025-01-04 22:55] VITALS: BP 132/79; PULSE 88; O2SAT 98
[2025-01-04 22:57] LABS: INR 0.9 (0.9-1.3); Prothrombin Time 10.3 SECONDS (9.4-12.5)
[2025-01-04 23:00] VITALS: BP 125/81; PULSE 90; O2SAT 98
[2025-01-04 23:00] LABS: PTT Partial Thromboplastin Tim 29 SECONDS (25.1-36.5)
[2025-01-04 23:01] LABS: Alanine Aminotransferase 89 IU/L (<35); Albumin 4.0 g/dL (3.5-5.0); Albumin Globulin Ratio 0.9 (1.0-2.8); Alkaline Phosphatase 230 U/L (38-126); Blood Urea Nitrogen 14 mg/dL (7-17); Calcium 9.0 mg/dL (8.4-10.2); Carbon Dioxide 26 mmol/L (22-32); Chloride 105 mmol/L (98-107); Estimated Glomerular Filt Rate > 60 mL/min (>60); Globulin 4.4 g/dL (1.7-4.1); Glucose 96 mg/dL (70-99); HEMOLYSIS < 15 (0-50); Potassium 3.8 mmol/L (3.4-5.1); Sodium 138 mmol/L (137-145); Total Protein 8.4 g/dL (6.3-8.2)
[2025-01-04 23:30] VITALS: PULSE 96; O2SAT 97
[2025-01-04 23:31] VITALS: BP 129/79; PULSE 92; RESP 18; O2SAT 99
[2025-01-04] MEDS: KETOROLAC 30 MG/ML VIAL IV (23:49)
== END 2025-01-04 23:56 | disposition home or self-care (01) ==
PROVIDERS: Emergency Provider Student in an Organized Health Care Education/Training Program
DX: D25.1 Intramural leiomyoma of uterus (principal); N92.0 Excessive and frequent menstruation with regular cycle
CPT/HCPCS: 36415; 76830; 76856; 80053; 85025; 85610; 85730; 86850; 86900; 86901; 96374; 99284; J1885

== ENCOUNTER 2025-01-28 00:54 | Emergency (ER) | payer OTHER, MEDICAID, SELFPAY ==
[2025-01-28 01:02] VITALS: BP 128/69; PULSE 99; RESP 18; TEMP 36.9; O2SAT 100; BMI 37.1
--- NOTE | 2025-01-28 01:05 | ED_ITS ---
HPI - Back Pain/Injury General Chief Complaint: Back Pain/Injury Stated Complaint: Back Pain Time Seen by Provider: 01/28/25 00:57 History of Present Illness HPI Narrative: 54-year-old female with no significant past medical or surgical history seen yesterday evening at [facility] diagnosed with a UTI given antibiotic thinks she may be have missed diagnosed as she has continued to have left upper back pain x4 days. Patient does not recall any inciting event that have triggered this. Nothing makes it better or worse. She has not take anything for pain as she does not like pills. Patient denies active chest pain, shortness of breath, dyspnea on exertion, leg pain, leg swelling, coughing, fever, chills, body aches, diaphoresis, nausea, vomiting. Other than what is stated 14 point review system is negative. Related Data Previous Rx's ?Medication ?Instructions ?Recorded ondansetron 4 mg disintegrating 4 mg PO Q6H PRN nausea and 02/27/20 tablet vomiting #10 tabs Allergies Allergy/AdvReac Type Severity Reaction Status Date / Time No Known Drug Allergies Allergy Verified 01/28/25 01:02 Review of Systems Review of Systems ROS Unobtainable: All systems reviewed & are unremarkable except as noted in HPI and below Patient History Medical History (Updated 01/28/25 @ 02:28 by Luis Fernando Kelly DO) Osteoarthritis of lumbar spine Surgical History No history of previous surgery Social History Smoking Status: Never smoker alcohol intake: never substance use type: does not use alcohol intake frequency: holidays/special occasions only Exam Narrative Exam Narrative: GENERAL: [54] year old patient appears stated age. Well-developed patient, in mild distress. HEAD: Atraumatic. Normocephalic. EYES: Pupils equal round and reactive. Extraocular motions intact. No scleral icterus. No injection or drainage. ENT: Nose without bleeding, purulent drainage. Throat without erythema, tonsillar hypertrophy or exudate. Airway patent. NECK: Trachea midline. Non tender CARDIOVASCULAR: Regular rate and rhythm without murmurs, gallops, or rubs. RESPIRATORY: Clear to auscultation. Breath sounds equal bilaterally. No wheezes, rales, or rhonchi. GASTROINTESTINAL: Abdomen soft, non-tender, nondistended. EXTREMITIES: No edema or joint tenderness. BACK: No deformity or crepitance. No flank tenderness. Left upper back left- sided pain tender to palpate T4-T7 but no midline tenderness of C,T or L-spine NEURO: AOx3. SKIN: No rash or erythema of visible areas Initial Vital Signs Initial Vital Signs: Vital Signs Temperature 98.5 F 01/28/25 01:02 Pulse Rate 99 H 01/28/25 01:02 Respiratory Rate 18 01/28/25 01:02 Blood Pressure 128/69 01/28/25 01:02 Pulse Oximetry 100 01/28/25 01:02 Oxygen Delivery Method Room Air 01/28/25 01:02 Course Orders Ordered: ED Orders 01/28/25 01:11 CXR [XR chest 2V] Stat Vital Signs Vital signs: Vital Signs - 8 hr 01/28/25 01:02 Temperature 98.5 F Pulse Rate 99 H Respiratory Rate 18 Blood Pressure 128/69 Pulse Oximetry 100 Oxygen Delivery Method Room Air MDM - Back Pain/Injury Imaging Data Chest x-ray: Radiologist's Impression: [place] [address] XRay Report Signed Patient: Danielle Roberts MR#: [id number] : 1970 Acct:[id number] Age/Sex: 54 / F Date of Service: 01/28/25 Loc: ED Accession Number: [id number] Procedure: XR chest 2V Ordering Provider: Luis Fernando Kelly D.O. PROCEDURE: XR CHEST 2V INDICATIONS: L sided upper back pain TECHNIQUE: 2 views of the chest were acquired. COMPARISON: [facility], , CHEST 1 VIEW, 09/29/2015, 13:42. FINDINGS: Surgical changes and devices: None. Lungs and pleura: Lungs are clear. No pleural effusions or pneumothorax. Mediastinum: Mediastinal contours are normal. Heart size is normal. Bones and chest wall: No suspicious bony abnormalities. Soft tissues appear unremarkable. IMPRESSION: No acute cardiopulmonary abnormality is seen. MDM Narrative Medical decision making narrative: All lab work, vital signs, nurse triage note, medication list, previous ER visits, and all imaging studies reviewed. Chest x-ray no acute process. Differential diagnosis includes kidney stone, kidney infection, UTI, pneumothorax, pneumonia, arthritis, sprain, strain. Discharge Plan Departure Patient Disposition: Home Clinical Impression: Upper back pain on left side Instructions: Thoracic Back Pain Activity Restrictions/Additional Instructions: Return with new or worsening symptoms. Finish antibiotics as previously prescribed for UTI. Heating pad or ice pack to the affected area along with Tylenol and/or ibuprofen for pain control. Follow up PCP in 1-2 weeks if no improvement in symptoms. Prescriptions: No Action ondansetron 4 mg tablet,disintegrating 4 mg PO Q6H PRN (Reason: nausea and vomiting) Qty: 10 0RF Stand Alone Forms: Patient Portal/API
--- NOTE | 2025-01-28 01:11 | DI.RAD.S_ITS ---
PROCEDURE: XR CHEST 2V INDICATIONS: L sided upper back pain TECHNIQUE: 2 views of the chest were acquired. COMPARISON: [facility], , CHEST 1 VIEW, 09/29/2015, 13:42. FINDINGS: Surgical changes and devices: None. Lungs and pleura: Lungs are clear. No pleural effusions or pneumothorax. Mediastinum: Mediastinal contours are normal. Heart size is normal. Bones and chest wall: No suspicious bony abnormalities. Soft tissues appear unremarkable. IMPRESSION: No acute cardiopulmonary abnormality is seen. Dictated by: Paresh Teresa M.D. on 01/28/2025 at 1:59 Approved by: Paresh Teresa M.D. on 01/28/2025 at 1:59
--- NOTE | 2025-01-28 01:38 | PC.NURSE ---
pt states back pain x 4 days no mechanism of injury no obvious deformity
[2025-01-28 02:35] VITALS: BP 118/64; PULSE 84; RESP 16; O2SAT 99
--- NOTE | 2025-01-28 02:36 | PC.NURSE ---
unable to validate vitals prior to being discharged
== END 2025-01-28 02:37 | disposition home or self-care (01) ==
PROVIDERS: Emergency Provider Family Medicine
DX: M54.6 Pain in thoracic spine (principal)
CPT/HCPCS: 71046; 99281; 99283